=== PATIENT | female | born 1935 | race Caucasian/White ===

== ENCOUNTER 2016-09-05 23:27 | Emergency (ER) | payer MEDICARE ==
[~2016-09-05] VITALS: Ht 162.6 cm; Wt 100.0 kg
[~2016-09-05 23:27] MED LIST: ASPI81TA82 PO; ATOR80TA41 PO; CALC.25 PO; HCTZ25 PO; LOSA50 PO; OMEP20CA5 PO; POLY119S PO; TAZT240C2 PO; TOPR100T15 PO; TRAM50 PO; TUMS CHEW; WARF5 PO
[2016-09-05 23:30] VITALS: BP 183/74; PULSE 87; RESP 18; TEMP 98.7; O2SAT 98
[2016-09-05] MEDS ORDERED: METO100T PO (23:43)
[2016-09-05] MEDS ORDERED: ASPI81CH CHEW (23:43)
[2016-09-05] MEDS ORDERED: DILT300C3 PO (23:43)
[2016-09-05] MEDS ORDERED: TERA2CAP3 PO (23:43)
[2016-09-05] MEDS ORDERED: MIRA33504 PO (23:43)
[2016-09-05] MEDS ORDERED: WARF-23 PO (23:43)
[2016-09-05] MEDS ORDERED: LOSA100T PO (23:43)
[2016-09-05] MEDS ORDERED: ATOR1TAB18 PO (23:43)
[2016-09-05] MEDS ORDERED: CALC0.25 PO (23:43)
[2016-09-05] MEDS ORDERED: WARF-18 PO (23:43)
[2016-09-05 23:48] VITALS: RESP 18; O2SAT 98
[2016-09-06 00:18] LABS: ALKALINE PHOSPHATASE 84 U/L (45-117); ALT (GPT) 33 U/L (10-53); ANION GAP 7 MEQ/L (5-15); AST (GOT) 26 U/L (15-37); BICARBONATE 27.4 MEQ/L (21.0-32.0); BLOOD UREA NITROGEN 32 MG/DL (7-18); CHLORIDE 107 MEQ/L (98-107); GLOMERULAR FILTRATION RATE 30 ML/MIN (>89); POTASSIUM 4.9 MEQ/L (3.5-5.1); SODIUM (NA) 141 MEQ/L (136-145); TOTAL BILIRUBIN ADULT 0.7 MG/DL (0.2-1.0)
--- NOTE | 2016-09-06 00:18 | RADRPT ---
EXAM DATE/TIME: 09/06/2016 00:00 [facility] COMPARISON: CT BRAIN W/O CONTRAST, September 16, 2014, 17:51. INDICATIONS : Trauma, fell and hit back of head. RADIATION DOSE: 56.35 CTDIvol (mGy) MEDICAL HISTORY : Hypertension. Cardiovascular disease cardiac stents SURGICAL HISTORY : Hysterectomy. ENCOUNTER: Initial ACUITY: 1 day PAIN SCALE: 6/10 LOCATION: cranial TECHNIQUE: Multiple contiguous axial images were obtained of the head. Using automated exposure control and adj ustment of the mA and/or kV according to patient size, radiation dose was kept as low as reasonably a chievable to obtain optimal diagnostic quality images. FINDINGS: There is complete opacification of the bilateral maxillary sinuses, ethmoid air cells frontal sinuses and extension into the nasal cavity from the bilateral maxillary sinuses possibly related to mucosal disease or mucous retention cysts. There is patchy white matter disease in the periventricular regio ns. No hemorrhage, acute infarct, or mass. Mild atrophy. No fractures. CONCLUSION: Pansinus opacification as above. Atrophy and white matter disease. Adama Mayorga MD on September 06, 2016 at 0:16 Board Certified Radiologist. This report was verified electronically.
[2016-09-06 00:20] LABS: APTT (PATIENT) 27.9 SEC (24.3-30.1); INTERNATIONAL NORMALIZED RATIO 1.4 RATIO
--- NOTE | 2016-09-06 00:28 | PD ---
HPI Chief Complaint: Fall Time Seen by Provider: 23:38 Travel History International Travel<30 days: No Contact w/Intl Traveler<30days: No Traveled to known affect area: No History of Present Illness HPI The patient is a 81 year old female who presents to the [facility] emergency department with a history of slipping and falling prior to arrival. She landed on her back on the tile. The patient reports that she has a headache. She denies having any other new pain. According to her who is at the bedside, she has had increasing difficulty with an unsteady gait. He reports that initially they thought this was related to the patient's chronic back pain which she receives injections for and is also of under the care of pain management for. However, over the last 4-5 days her back pain has been worse. The patient has a history of atrial fibrillation and is anticoagulated on Coumadin. He reports that she has had problems with intermittent falling due to her unsteady gait several times over the last few weeks. The patient denies having any extremity pain. She denies having any numbness or tingling or weakness to her extremities. She denies having any chest pain or shortness of breath. She denies having any abdominal pain. She denies having any neck pain. The patient was brought in by ambulance services and refused to have her cervical spine immobilized with a collar or to be placed on a backboard. The patient denies having a loss of consciousness. On review of systems, The patient denies any recent fevers, cough, congestion, vomiting, diarrhea, urinary symptoms, or neurologic symptoms. [facility] Past Medical History Narrative Medical The patient's past medical history is significant for atrial fibrillation, hyperlipidemia, coronary artery disease, hypertension, arthritis, chronic back pain Arthritis: Yes Asthma: No Atrial Fibrillation: Yes Autoimmune Disease: No Blood Disorders: No Anxiety: No Depression: No Heart Rhythm Problems: Yes (A FIB) Cancer: No Cardiac Catheterization: Yes Cardiovascular Problems: Yes (A FIB, STENTS X 3, HEART CATH) High Cholesterol: Yes Chemotherapy: No Chest Pain: Yes Congestive Heart Failure: No COPD: No Cerebrovascular Accident: No Coronary Artery Disease: Yes Diabetes: No Diminished Hearing: No Endocrine: No Gastrointestinal Disorders: Yes (HX OF CONSTIPATION) GERD: Yes Glaucoma: No Genitourinary: No Hepatitis: No Hiatal Hernia: No Hypertension: Yes Immune Disorder: No Kidney Stones: No Musculoskeletal: Yes Neurologic: No Psychiatric: No Reproductive: No Respiratory: No Immunizations Current: Yes Migraines: No Myocardial Infarction: No Radiation Therapy: No Renal Failure: No Seizures: No Sickle Cell Disease: No Sleep Apnea: No Thyroid Disease: Yes Ulcer: No Tetanus Vaccination: < 5 Years PNEUMOCCOCAL Vaccine (Year): 1 Menopausal: Yes Past Surgical History Narrative Surgical The patient's past surgical history is significant for cardiac catheterization with stent placement 3, parathyroidectomy, partial thyroidectomy, right knee replacement, hysterectomy, cholecystectomy. 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 Morphine (Verified Adverse Reaction, Intermediate, N/V, 09/05/16) Reported Meds & Prescriptions Reported Meds & Active Scripts Active Reported Diltiazem CD 24 HR 300 Mg Caper 300 Mg PO DAILY Metoprolol Tartrate 100 Mg Tab 100 Mg PO BID Losartan (Losartan Potassium) 100 Mg Tab 100 Mg PO DAILY Calcitriol 0.25 Mcg Cap 0.25 Mcg PO TID Warfarin 2.5 Mg Tab 2.5 Mg PO DAILY Warfarin 5 Mg Tab 5 Mg PO DAILY Atorvastatin (Atorvastatin Calcium) 80 Mg Tab 80 Mg PO HS Terazosin (Terazosin HCl) 2 Mg Cap 2 Mg PO HS Miralax Powder (Polyethylene Glycol 3350 Powder) 17 Gm Powd 17 Gm PO DAILY Mix and dissolve one measuring cap-ful (17 grams) in water or juice. Aspirin 81 Mg Chew 81 Mg CHEW ONCE Review of Systems Except as stated in HPI: all other systems reviewed are Neg General / Constitutional: No: Fever Eyes: No: Visual changes HENT: Positive: Headaches, No: Neck Pain Cardiovascular: No: Chest Pain or Discomfort Respiratory: No: Shortness of Breath Gastrointestinal: No: Abdominal Pain Genitourinary: No: Dysuria Musculoskeletal: No: Pain Skin: No Rash Neurologic: Positive: Headache, No: Weakness, Focal Abnormalities, Change in Mentation, Slurred Speech, Sensory Disturbance Psychiatric: No: Depression Endocrine: No: Polydipsia Hematologic/Lymphatic: No: Easy Bruising Physical Exam Narrative General: The patient is a well-developed well-nourished female in no acute distress, pressure bandage is in place around her head. Head and Neck exam: Head is normocephalic, pressure bandage is in place around her head with a reported laceration on the occipital scalp. Examination of this has been deferred until after CT scan. The patient's bandage was removed and the patient was noted to have a 1 cm laceration to the left occipital scalp without any active bleeding. No underlying crepitus or step-off. She does have some soft tissue swelling surrounding this. Eyes: EOMI, pupils are equal round and reactive to light. Nose: Midline septum with pink mucous membranes Mouth: Dentition unremarkable. Moist mucus membranes. Posterior oropharynx is not erythematous. No tonsillar hypertrophy. Uvula midline. Airway patent. Neck: No palpable lymphadenopathy. No nuchal rigidity. No thyromegaly. No spinous process tenderness to palpation, no step-off or crepitus, no erythema or ecchymosis. Cardiovascular: Regular rate and rhythm without murmurs, gallops, or rubs. No pulse deficit to the extremities. Lungs: Clear to auscultation bilaterally. No wheezes, rhonchi, or rales. Abdomen: Soft, without tenderness to palpation in all 4 quadrants of the abdomen. No guarding, rebound, or rigidity. Normal bowel sounds are audible. No tenderness on palpation of McBurney's point. Negative Shanks's sign. Extremities: No clubbing or cyanosis. The patient has 1+ pitting edema bilateral lower extremities. 2+ pulses in all 4 extremities. On examination of the patient's extremities, the patient has full range of motion without any deformity, crepitus, or pain. She has no pelvic instability on pelvic rock. Back: No spinous process tenderness to palpation. No costovertebral angle tenderness to palpation. The patient has no step-off or crepitus on palpation of her spinous processes. No erythema or ecchymosis. Neurologic Exam: Cranial nerves 2-12 were intact on exam. Strength is 5/5 in all 4 extremities. No sensory deficits noted. Data Data Last Documented VS Vital Signs Date Time Temp Pulse Resp B/P Pulse Ox O2 Delivery O2 Flow Rate FiO2 09/06/16 02:29 66 16 186/86 97 Room Air 09/05/16 23:[address] Brain W/O Iv Contrast(Rout) (09/05/16 23:43) Ct Cerv Spine W/O Contrast (09/05/16 23:43) Electrocardiogram (09/05/16 23:44) Complete Blood Count With Diff (09/05/16 23:44) Comprehensive Metabolic Panel (09/05/16 23:44) Prothrombin Time / Inr (Pt) (09/05/16 23:44) Act Partial Throm Time (Ptt) (09/05/16 23:44) Urinalysis - C+S If Indicated (09/05/16 23:44) Chest, Single Ap (09/05/16 23:44) Iv Access Insert/Monitor (09/05/16 23:44) Ecg Monitoring (09/05/16 23:44) Oximetry (09/05/16 23:44) Cefazolin 2 Gm Premix (Ancef 2 Gm Premix (09/06/16 01:15) Sodium Chlor 0.9% 250 Ml Inj (Ns 250 Ml (09/06/16 01:15) Lidocai-Epi 1%-1:100,000 Inj (Xylocaine- (09/06/16 02:00) Cath For Specimen (09/06/16 02:16) Urine Culture (09/06/16 02:20) Labs Laboratory Tests Test 09/05/16 09/06/16 09/06/16 23:50 00:30 02:20 Prothrombin Time 16.0 SEC Prothromb Time International 1.4 RATIO Ratio Activated Partial 27.9 SEC Thromboplast Time Sodium Level 141 MEQ/L Potassium Level 4.9 MEQ/L Chloride Level 107 MEQ/L Carbon Dioxide Level 27.4 MEQ/L Anion Gap 7 MEQ/L Blood Urea Nitrogen 32 MG/DL Creatinine 1.63 MG/DL Estimat Glomerular Filtration 30 ML/MIN Rate Random Glucose 91 MG/DL Calcium Level 9.5 MG/DL Total Bilirubin 0.7 MG/DL Aspartate Amino Transf 26 U/L (AST/SGOT) Alanine Aminotransferase 33 U/L (ALT/SGPT) Alkaline Phosphatase 84 U/L Total Protein 6.7 GM/DL Albumin 2.5 GM/DL White Blood Count 5.1 TH/MM3 Red Blood Count 3.69 MIL/MM3 Hemoglobin 10.7 GM/DL Hematocrit 33.3 % Mean Corpuscular Volume 90.1 FL Mean Corpuscular Hemoglobin 29.0 PG Mean Corpuscular Hemoglobin 32.2 % Concent Red Cell Distribution Width 16.7 % Platelet Count 149 TH/MM3 Mean Platelet Volume 8.2 FL Neutrophils (%) (Auto) % CBC Comment AUTO DIFF Differential Total Cells 100 Counted Neutrophils % (Manual) 59 % Band Neutrophils % 8 % Lymphocytes % 10 % Monocytes % 9 % Eosinophils % 5 % Neutrophils # (Manual) 3.5 TH/MM3 Myelocytes 1 % Nucleated Red Blood Cells 1 /100 WBC Differential Comment FINAL DIFF MANUAL Atypical Lymphocytes 8 % Platelet Estimate NORMAL Platelet Morphology Comment NORMAL Ovalocytes 1+ Acanthocytes 1+ Hematology Comments Urine Color YELLOW Urine Turbidity HAZY Urine pH 5.5 Urine Specific [place] 1.013 Urine Protein 30 mg/dL Urine Glucose (UA) NEG mg/dL Urine Ketones NEG mg/dL Urine Occult Blood NEG Urine Nitrite POS Urine Bilirubin NEG Urine Urobilinogen LESS THAN 2.0 MG/DL Urine Leukocyte Esterase MOD Urine RBC 1 /hpf Urine WBC 16 /hpf Urine Squamous Epithelial 3 /hpf Cells Urine Amorphous Sediment RARE Urine Bacteria MOD /hpf Urine Hyaline Casts 1 /lpf Urine Mucus FEW /lpf Microscopic Urinalysis Comment CATH-CULTURE IND [facility] Medical Decision Making Medical Screen Exam Complete: Yes Emergency Medical Condition: Yes Medical Record Reviewed: Yes Interpretation(s) Last Impressions Chest X-Ray 09/05/[id number] Signed Impressions: Service Date/Time: Tuesday, September 06, 2016 00:06 - CONCLUSION: No acute disease. Adama Mayorga MD Head CT [id number] Signed Impressions: Service Date/Time: Tuesday, September 06, 2016 00:00 - CONCLUSION: Pansinus opacification as above. Atrophy and white matter disease. Adama Mayorga MD Cervical Spine CT [id number] Signed Impressions: Service Date/Time: Tuesday, September 06, 2016 00:02 - CONCLUSION: Degenerative changes are noted as above without evidence for acute fracture. Adama Mayorga MD Differential Diagnosis Intracranial hemorrhage, versus concussion, versus cervical spine trauma, versus intrathoracic trauma, versus pelvic injury Narrative Course During the course of the patients emergency department visit, the patients history, examination, and differential diagnosis were reviewed with the patient. The patient had IV access obtained and blood work sent for analysis. The patient was placed on a clinical research monitor with oximetry and blood pressure monitoring. An EKG was done on arrival. The patient's EKG shows evidence of atrial fibrillation with a heart rate of 89, no acute ST segment elevation is noted. Q waves are noted in lead 3, occasional PVCs are noted. The patient was provided Ancef 2 g IV, normal saline at 250 mm IV fluid bolus times one. The patients laboratory studies were reviewed and remarkable for a white count of 5.1, hemoglobin 10.7, platelets 149 with an abnormal differential to include 59 neutrophils, 8 bands, 10 lymphocytes, monocytes 9, eosinophils 5. On further questioning of the patient the patient's family they report that she does have a blood disorder which they are having monitored, CMP is remarkable for a BUN of 32, creatinine 1.63, albumin 2.5. The patient has a history of renal insufficiency and this is similar to previously. INR is 1.4, PTT 27.9, PT 16, urinalysis shows positive nitrite, moderate leukocyte esterase, 16 WBCs, moderate bacteria. Culture was indicated. This was a catheterized specimen. Radiology studies were reviewed and remarkable for a CT scan of the brain that shows pansinusitis, otherwise no acute abnormality, chest x-ray shows no acute abnormality, CT scan of the brain shows degenerative changes, no other acute abnormality. The patient was able to stand up and ambulate and is at her baseline. The patient will be discharged home with a prescription for Keflex to be completed over the next 10 days. This antibiotic should cover well for sinusitis as well as her urinary tract infection. The patient is resting comfortably and feels better, is alert and in no distress. The patients results and examination findings were discussed with the patient's and the patient. The repeat examination is unremarkable and benign. The history, exam, diagnostic testing, and current condition do not suggest any significant pathology to warrant further testing, continued ED treatment, admission, or surgical evaluation at this point. The vital signs have been stable. The patient does not have uncontrollable pain, intractable vomiting, or other significant symptoms. The patient's condition is stable and appropriate for discharge. The patient will pursue further outpatient evaluation with a primary care physician or other designated or consulting physician as indicated in the discharge instructions. The patient expressed understanding and was agreeable with this plan. Procedures Procedure Narrative LACERATION LOCATION: Left occipital scalp LENGTH: 1 cm NUMBER OF STITCHES/PHILIP: 2 philip REPAIR: The area of the laceration was prepped with Betadine and sterilely draped. The laceration was infiltrated with 1% lidocaine. The wound was copiously irrigated and explored without evidence of foreign body, tendon injury or neurovascular injury. The wound was closed using philip. This was a single layer repair. A sterile dressing was applied. The patient was advised to keep the dressing clean and dry. Patient tolerated the procedure well. Diagnosis Primary Impression: Fall Qualified Code: W19.XXXA - Fall, initial encounter Additional Impressions: Scalp laceration Qualified Code: S01.01XA - Scalp laceration, initial encounter Chronic anticoagulation Urinary tract infection Qualified Code: N30.00 - Acute cystitis without hematuria Sinusitis Qualified Code: J32.4 - Pansinusitis, unspecified chronicity Referrals: Primary Care Physician 2 days Patient Instructions: General Instructions, Head Injury (ED), Scalp Contusion in Adults (ED), Sinusitis (ED), Staple Care (ED), Urinary Tract Infection in Women (ED) Additional Instructions: Please have your philip removed in 7 days. Med/Other Pt SpecificInfo: Prescription(s) given Scripts Cephalexin (Keflex)500 Mg Non386 Mg PO Q8H #30 CAP Ref 0 Prov:Mallorie Ramirez MD 09/06/16 Condition: Stable Mallorie Ramirez MD Sep 06, 2016 00:28
--- NOTE | 2016-09-06 00:29 | RADRPT ---
EXAM DATE/TIME: 09/06/2016 00:06 [facility] COMPARISON: CHEST SINGLE AP, July 31, 2013, 19:24. INDICATIONS : Shortness of breath. MEDICAL HISTORY : Hypertension. Cardiovascular disease. SURGICAL HISTORY : Hysterectomy. Coronary artery stent. ENCOUNTER: Initial ACUITY: 1 day PAIN SCORE: 0/10 LOCATION: Bilateral chest FINDINGS: Cardiomegaly. Aortic calcification. Clear lungs. Degenerative changes of the spine. CONCLUSION: No acute disease. Adama Mayorga MD on September 06, 2016 at 0:28 Board Certified Radiologist. This report was verified electronically.
--- NOTE | 2016-09-06 00:32 | RADRPT ---
EXAM DATE/TIME: 09/06/2016 00:02 [facility] COMPARISON: No previous studies available for comparison. INDICATIONS : Trauma, fell and hit back of head. RADIATION DOSE: 36.08 CTDIvol (mGy) MEDICAL HISTORY : Hypertension. Cardiovascular disease cardiac stents SURGICAL HISTORY : Hysterectomy. ENCOUNTER: Initial ACUITY: 1 day PAIN SCALE: 6/10 LOCATION: neck TECHNIQUE: Volumetric scanning of the cervical spine was performed. Multiplanar reconstructions in the sagittal, coronal and oblique axial planes were performed. Using automated exposure control and adjustment o f the mA and/or kV according to patient size, radiation dose was kept as low as reasonably achievable to obtain optimal diagnostic quality images. FINDINGS: There is moderate disc space narrowing at C4-5 and C7-T1 with multilevel osteophyte formation. The od ontoid process is intact. There is no prevertebral soft tissue swelling. Normal alignment. Multilevel uncovertebral hypertrophy at C4-5 through C6-7 identified. No compression deformities. There is mild canal stenosis at C3-4 secondary to a diffuse disc osteophyte complex. There is mild canal narrowing at C4-5 with severe bilateral foraminal stenosis right greater than left secondary to uncovertebral hypertrophy. CONCLUSION: Degenerative changes are noted as above without evidence for acute fracture. Adama Mayorga MD on September 06, 2016 at 0:29 Board Certified Radiologist. This report was verified electronically.
[2016-09-06] MEDS ORDERED: SODIUM CHLOR 0.9% 250 ML INJ 250 ML IV ONE (01:15)
[2016-09-06] MEDS ORDERED: ceFAZolin 2 GM PREMIX 50 ML IV ONE (01:15)
[2016-09-06] MEDS ORDERED: LIDOCAINE 1%/EPINEPHrine 1:100,000 SOLN 20 ML VIAL INFIL ONE (02:00)
[2016-09-06 02:29] VITALS: BP 186/86; PULSE 66; RESP 16; O2SAT 97
[2016-09-06 02:41] LABS: HEMATOCRIT 33.3 % (35.0-46.0); RED BLOOD COUNT 3.69 MIL/MM3 (4.00-5.30); WHITE BLOOD COUNT 5.1 TH/MM3 (4.0-11.0)
[2016-09-06 02:42] LABS: HEMO FLAGS AUTO DIFF; MEAN CELL VOLUME 90.1 FL (80.0-100.0); MEAN CORPUSCULAR HGB CONC 32.2 % (32.0-36.0); PLATELET COUNT 149 TH/MM3 (150-450); RED CELL DISTRIBUTION WIDTH 16.7 % (11.6-17.2)
[2016-09-06 02:46] LABS: BACTERIA, URINE MOD /hpf; BLOOD, URINE NEG (NEG); GLUCOSE,URINE NEG (NEG); HYALINE CAST, URINE 1 /lpf (RARE); KETONE, URINE NEG (NEG); MUCUS URINE FEW /lpf (OCC); NITRITE,URINE POS (NEG); PH, URINE 5.5 (5.0-8.5); SQUAMOUS EPITHELIAL CELL URINE 3 /hpf (0-5); URINE COLOR YELLOW (YELLW/STRAW)
[2016-09-06 02:47] LABS: ATYPICAL LYMPHOCYTES 8 % (0-0); BANDS 8 % (0-6); CORRECTED NUCLEATED RBC 1 /100 WBC (0-0); EOSINOPHILS 5 % (0-4); MYELOCYTES 1 % (0-0); NEUTROPHIL # MANUAL DIFF 3.5 TH/MM3 (1.8-7.7); POLYS (SEG NEUTROPHILS) 59 % (16-70); SCAN/DIFF FINAL DIFF MANUAL; WBC DIFF SAMPLE 100
[2016-09-06 02:47] LABS: COMMENT (UR) CATH-CULTURE IND; CULTURE IF INDICATED CATH CULTURE IND
[2016-09-06 02:48] LABS: ACANTHOCYTES 1+ (NORMAL); OVALOCYTES 1+ (NORMAL); PLATELET ESTIMATE SMEAR NORMAL (NORMAL); PLATELET MORPHOLOGY NORMAL (NORMAL)
[2016-09-06] MEDS ORDERED: CEPH-460 PO (03:26)
[2016-09-06 03:39] VITALS: BP 186/78; TEMP 98.5
--- NOTE | 2016-09-06 14:32 | EKG ---
Date Performed: 09/05/2016 Time Performed: 23:40:37 PTAGE: 81 years EKG: ATRIAL FIBRILLATION LOW QRS VOLTAGE IN PRECORDIAL LEADS POSSIBLE ANTERIOR MYOCARDIAL INFARC TION ABNORMAL ECG PREVIOUS TRACING : 08/01/2013 08.57 Compared to the previous tracing, Atrial fibrillation is ne w DOCTOR: Larry Steward Interpretating Date/Time 09/06/2016 14:30:11
== END 2016-09-06 03:42 | disposition home or self-care (01) ==
LOC: NEPE 23:27
DX: S01.01XA Laceration without foreign body of scalp, initial encounter (principal); J32.4 Chronic pansinusitis; N30.00 Acute cystitis without hematuria; B96.20 Unspecified Escherichia coli [E. coli] as the cause of diseases classified elsewhere; I48.91 Unspecified atrial fibrillation; W01.0XXA Fall on same level from slipping, tripping and stumbling without subsequent striking against object, initial encounter; Y93.9 Activity, unspecified; Y92.9 Unspecified place or not applicable
CPT/HCPCS: 12001; 70450; 71010; 72125; 80053; 81001; 85007; 85027; 85610; 85730; 87077; 87086; 87186; 93005; 96365; 99285; J0690; J7050; P9612

== ENCOUNTER 2017-01-13 00:18 | Inpatient (IN) | payer MEDICARE ==
[~2017-01-13] VITALS: Ht 162.6 cm; Wt 75.7 kg
[2017-01-13] VITALS (17 sets, daily range): BP systolic 117–175; BP diastolic 58–71; PULSE 63–92; RESP 14–25; TEMP 97.8–99.9; O2SAT 96–100
[~2017-01-13 00:18] MED LIST changes: +ASPI81CH CHEW; -ASPI81TA82 PO; +ATOR1TAB18 PO; -ATOR80TA41 PO; -CALC.25 PO; +CALC0.25 PO; +CEPH-460 PO; +DILT300C3 PO; -HCTZ25 PO; +LOSA100T PO; -LOSA50 PO; +METO100T PO; +MIRA33504 PO; -OMEP20CA5 PO; -POLY119S PO; -TAZT240C2 PO; +TERA2CAP3 PO; -TOPR100T15 PO; -TRAM50 PO; -TUMS CHEW; +WARF-18 PO; +WARF-23 PO; -WARF5 PO
[2017-01-13 00:30] LABS: MEAN CORPUSCULAR HGB CONC 37.2 % (32.0-36.0)
[2017-01-13] MEDS ORDERED: FUROSEMIDE 40 MG/4 ML VIAL IVP ONE (00:30)
[2017-01-13] MEDS ORDERED: SODIUM CHLORIDE 0.9% FLUSH 10 ML FLUSH IVF PRN ×2 (00:30→03:45)
--- NOTE | 2017-01-13 00:35 | PD ---
HPI Chief Complaint: Edema Time Seen by Provider: 00:22 Travel History International Travel<30 days: No Contact w/Intl Traveler<30days: No Traveled to known affect area: No History of Present Illness HPI The patient is a 81-year-old female who presents emergency department via EMS for 3 weeks of increasing lower extremity edema. The patient states she 's had edema to lower extremities for last 3 weeks. The patient states she did see her physician in the office, however, cannot recall what recommendations were made. According to EMS the patient was supposed to be taking a diuretic, however, is not being taken a diuretic as directed. The patient is a somewhat limited historian, but is at baseline according to EMS. The patient states she lives at home with her . She does complain of lower extremity edema that is painful occasionally weeping. She now complains of mild erythema to left lower extremity. She denies any chest pain or shortness of breath. The patient is a somewhat limited historian. PFSH Past Medical History Arthritis: Yes Asthma: No Atrial Fibrillation: Yes Autoimmune Disease: No Blood Disorders: No Anxiety: No Depression: No Heart Rhythm Problems: Yes (A FIB) Cancer: No Cardiac Catheterization: Yes Cardiovascular Problems: Yes (A FIB, STENTS X 3, HEART CATH) High Cholesterol: Yes Chemotherapy: No Chest Pain: Yes Congestive Heart Failure: No COPD: No Cerebrovascular Accident: No Coronary Artery Disease: Yes Diabetes: No Diminished Hearing: No Endocrine: No Gastrointestinal Disorders: Yes (HX OF CONSTIPATION) GERD: Yes Glaucoma: No Genitourinary: No Hepatitis: No Hiatal Hernia: No Hypertension: Yes Immune Disorder: No Kidney Stones: No Musculoskeletal: Yes Neurologic: No Psychiatric: No Reproductive: No Respiratory: No Immunizations Current: Yes Migraines: No Myocardial Infarction: No Radiation Therapy: No Renal Failure: No Seizures: No Sickle Cell Disease: No Sleep Apnea: No Thyroid Disease: Yes Ulcer: No PNEUMOCCOCAL Vaccine (Year): 1 Menopausal: Yes Past Surgical History Abdominal Surgery: No AICD: No Arteriovenous Shunt: No Cardiac Surgery: Yes (STENTS 3) Cholecystectomy: Yes Coronary Artery Bypass Graft: No Coronary Stent: Yes (X3) Ear Surgery: No Endocrine Surgery: Yes (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 Diltiazem CD 24 HR 300 Mg Caper 300 Mg PO DAILY Metoprolol Tartrate 100 Mg Tab 100 Mg PO BID Losartan (Losartan Potassium) 100 Mg Tab 100 Mg PO DAILY Calcitriol 0.25 Mcg Cap 0.25 Mcg PO TID Warfarin 2.5 Mg Tab 2.5 Mg PO DAILY Warfarin 5 Mg Tab 5 Mg PO DAILY Atorvastatin (Atorvastatin Calcium) 80 Mg Tab 80 Mg PO HS Terazosin (Terazosin HCl) 2 Mg Cap 2 Mg PO HS Aspirin 81 Mg Chew 81 Mg CHEW ONCE Review of Systems ROS Limitations: Poor Historian Except as stated in HPI: all other systems reviewed are Neg General / Constitutional: No: Fever Cardiovascular: No: Chest Pain or Discomfort Respiratory: No: Shortness of Breath Gastrointestinal: No: Nausea, Vomiting, Abdominal Pain Musculoskeletal: Positive: Edema, Pain Physical Exam Narrative GENERAL: Awake but somewhat lethargic 81 year-old female who appears her stated age and is in mild respiratory distress with a respiratory rate of 28. SKIN: Focused skin assessment warm/dry. HEAD: Atraumatic. Normocephalic. EYES: Mild drainage from the left eye. ENT: No nasal bleeding or discharge. Mucous membranes pink and moist. NECK: Trachea midline. No JVD. CARDIOVASCULAR: Irregularly irregular with a heart rate in the 70s. RESPIRATORY: Tachypnea with a respiratory rate of 28. Crackles in the bases bilateral. GASTROINTESTINAL: Abdomen soft, obese, nontender without rebound tenderness. MUSCULOSKELETAL: Lower extremity pain and edema from the inferior thigh bilaterally to the toes. Mild erythema over the medial and anterior left lower extremity. NEUROLOGICAL: Awake but lethargic. No obvious deficits. Oriented to person, place, and year. PSYCHIATRIC: Flat affect. Data Data Last Documented VS Vital Signs Date Time Temp Pulse Resp B/P Pulse Ox O2 Delivery O2 Flow Rate FiO2 01/13/17 00:38 25 98 Room Air 01/13/17 00:34 69 01/13/17 00:30 99.9 137/60 Orders Complete Blood Count With Diff (01/13/17:) Comprehensive Metabolic Panel (01/13/17:) B-Type Natriuretic Peptide (01/13/17:) Act Partial Throm Time (Ptt) (01/13/17:) Prothrombin Time / Inr (Pt) (01/13/17:) Magnesium (Mg) (01/13/17:) Ckmb (Isoenzyme) Profile (01/13/17:) Troponin I (01/13/17:) Iv Access Insert/Monitor (01/13/17:) Electrocardiogram (01/13/17:) Ecg Monitoring (01/13/17) Oximetry (01/13/17:) Oxygen Administration (01/13/17:) Chest, Single Ap (01/13/17:28) Sodium Chloride 0.9% Flush (Ns Flush) (01/13/17 00:30) Furosemide Inj (Lasix Inj) (01/13/17 00:30) Lactic Acid (01/13/17 00:44) Wound Care (01/13/17 01:51) Admit Order (Ed Use Only) (01/13/17 02:31) Labs Laboratory Tests Test 01/13/17 00:45 Prothrombin Time 61.6 SEC Prothromb Time International 5.2 RATIO Ratio Activated Partial 38.5 SEC Thromboplast Time Sodium Level 142 MEQ/L Potassium Level 4.6 MEQ/L Chloride Level 107 MEQ/L Carbon Dioxide Level 27.8 MEQ/L Anion Gap 7 MEQ/L Blood Urea Nitrogen 34 MG/DL Creatinine 1.19 MG/DL Estimat Glomerular Filtration 44 ML/MIN Rate Random Glucose 93 MG/DL Lactic Acid Level 1.3 mmol/L Calcium Level 8.8 MG/DL Magnesium Level 1.8 MG/DL Total Bilirubin 0.8 MG/DL Aspartate Amino Transf 24 U/L (AST/SGOT) Alanine Aminotransferase 36 U/L (ALT/SGPT) Alkaline Phosphatase 73 U/L Total Creatine Kinase 45 U/L Troponin I LESS THAN 0.02 NG/ML B-Type Natriuretic Peptide 479 PG/ML Total Protein 6.2 GM/DL Albumin 2.8 GM/DL [facility] Medical Decision Making Medical Screen Exam Complete: Yes Emergency Medical Condition: Yes Medical Record Reviewed: Yes Interpretation(s) EKG reveals atrial fibrillation with a rate of 79. Nonspecific T wave changes. Q wave noted in lead 3. Last Impressions Chest X-Ray 01/13/17 0028 Signed Impressions: Service Date/Time: December 00:47 - CONCLUSION: No acute cardiopulmonary abnormality is identified. Jai Kelley MD Laboratory Tests Test 01/13/17 00:45 Prothrombin Time 61.6 SEC Prothromb Time International 5.2 RATIO Ratio Activated Partial 38.5 SEC Thromboplast Time Sodium Level 142 MEQ/L Potassium Level 4.6 MEQ/L Chloride Level 107 MEQ/L Carbon Dioxide Level 27.8 MEQ/L Anion Gap 7 MEQ/L Blood Urea Nitrogen 34 MG/DL Creatinine 1.19 MG/DL Estimat Glomerular Filtration 44 ML/MIN Rate Random Glucose 93 MG/DL Lactic Acid Level 1.3 mmol/L Calcium Level 8.8 MG/DL Magnesium Level 1.8 MG/DL Total Bilirubin 0.8 MG/DL Aspartate Amino Transf 24 U/L (AST/SGOT) Alanine Aminotransferase 36 U/L (ALT/SGPT) Alkaline Phosphatase 73 U/L Total Creatine Kinase 45 U/L Troponin I LESS THAN 0.02 NG/ML B-Type Natriuretic Peptide 479 PG/ML Total Protein 6.2 GM/DL Albumin 2.8 GM/DL Differential Diagnosis Differential diagnosis includes congestive heart failure, cardiomyopathy, volume overload, hypoalbuminemia, dependent edema, venous insufficiency, pleural effusion, hyponatremia. Narrative Course IV was established, labs are drawn and sent, and the patient was placed on cardiac telemetry monitoring and continuous pulse oximetry monitoring. EKG was ordered and interpreted. Chest x-ray was obtained. The patient was administered Lasix 40 mg intravenously. Chest x-ray is unremarkable. The patient's INR is elevated at 5.2. The patient's BNP is greater than 400. The patient is afebrile rate controlled. Chest x-ray was unremarkable, however, patient does have crackles with mild tachypnea. I had a discussion with the at bedside regarding disposition of going home versus admission. The states that he has been speaking with Dr. Samaniego, the primary physician , over the last 6 months. The lower extremity edema has been progressively getting worse, the states that he got a chair to help lift her up and over to a wheelchair, however, he is unable to take care of his at home. After discussion with the patient's , he would prefer admission and correction placement if possible as this problem has been progressing and he is no longer able to take care of his . Therefore, I discussed the patient with the on-call [facility] physician, Dr. De, who agrees with admission. Physician Communication Physician Communication I discussed the patient with Dr. De who agrees with admission. Diagnosis Primary Impression: Congestive heart failure Qualified Code: I50.9 - Acute on chronic congestive heart failure, unspecified congestive heart failure type Additional Impressions: Dependent edema Coagulopathy Admitting Information Admitting Physician Requests: Admit Condition: Stable Isai Benito MD Jan 13, 2017 00:35
[2017-01-13] MEDS ORDERED: MIRA3350 PO (00:43)
[2017-01-13 01:33] LABS: ALKALINE PHOSPHATASE 73 U/L (45-117); ALT (GPT) 36 U/L (10-53); ANION GAP 7 MEQ/L (5-15); AST (GOT) 24 U/L (15-37); BICARBONATE 27.8 MEQ/L (21.0-32.0); BLOOD UREA NITROGEN 34 MG/DL (7-18); CHLORIDE 107 MEQ/L (98-107); CREATINE KINASE 45 U/L (26-192); GLOMERULAR FILTRATION RATE 44 ML/MIN (>89); MAGNESIUM 1.8 MG/DL (1.5-2.5); POTASSIUM 4.6 MEQ/L (3.5-5.1); SODIUM (NA) 142 MEQ/L (136-145); TOTAL BILIRUBIN ADULT 0.8 MG/DL (0.2-1.0)
--- NOTE | 2017-01-13 01:38 | RADRPT ---
EXAM DATE/TIME: 01/13/2017 00:47 [place] COMPARISON: CHEST SINGLE AP, September 06, 2016, 0:06. INDICATIONS : Shortness of breath. MEDICAL HISTORY : Hypertension. Cardiovascular disease. SURGICAL HISTORY : Hysterectomy. Coronary artery stent. ENCOUNTER: Initial ACUITY: 1 day PAIN SCORE: Non-responsive. LOCATION: Bilateral chest FINDINGS: Portable AP view of the chest demonstrates a normal-sized cardiac silhouette. No effusion, consolidat ion, or pneumothorax is visualized. The bones and soft tissues demonstrate no acute abnormality. EKG lines overlie the patient. CONCLUSION: No acute cardiopulmonary abnormality is identified. Jai Kelley MD on January 13, 2017 at 1:35 Board Certified Radiologist. This report was verified electronically.
[2017-01-13 02:10] LABS: APTT (PATIENT) 38.5 SEC (24.3-30.1); INTERNATIONAL NORMALIZED RATIO 5.2 RATIO; PROTHROMBIN TIME - PATIENT 61.6 SEC (9.8-11.6)
[2017-01-13] MEDS ORDERED: ACETAMINOPHEN 650 MG SUPP PR PRN (03:45)
[2017-01-13] MEDS ORDERED: ONDANSETRON HCL 4 MG/2 ML VIAL IV PRN (03:45)
[2017-01-13 05:12] LABS: AUTOMATED NEUTROPHIL # 10.4 TH/MM3 (1.8-7.7); BASOPHIL % 0.3 % (0.0-2.0); EOSINOPHIL % 0.3 % (0.0-4.0); HEMATOCRIT 32.9 % (35.0-46.0); LYMPH % 7.5 % (9.0-44.0); LYMPHOCYTE # 0.9 TH/MM3 (1.0-4.8); MEAN CELL VOLUME 97.5 FL (80.0-100.0); MEAN CORPUSCULAR HEMOGLOBIN 36.3 PG (27.0-34.0); MONO % 5.1 % (0.0-8.0); NEUT % 86.8 % (16.0-70.0); PLATELET COUNT 141 TH/MM3 (150-450); RED BLOOD COUNT 3.37 MIL/MM3 (4.00-5.30); RED CELL DISTRIBUTION WIDTH 17.3 % (11.6-17.2)
[2017-01-13 05:13] LABS: HEMO FLAGS AUTO DIFF
[2017-01-13 07:31] LABS: ACANTHOCYTES 2+ (NORMAL); OVALOCYTES 1+ (NORMAL); SCAN/DIFF AUTO DIFF CONFIRMED
[2017-01-13] MEDS ORDERED: PROP150T PO (08:38)
[2017-01-13] MEDS ORDERED: ASPIRIN 81 MG CHEW TAB CHEW SCH (08:45)
--- NOTE | 2017-01-13 09:25 | HHI.HP ---
HPI Service [facility] Hospitalists Primary Care Physician Robles Samaniego MD Admission Diagnosis congestive heart failure, bilateral lower extremity pitting edema Chief Complaint: LE pain and swelling Travel History International Travel<30 Days: No Contact w/Intl Traveler <30 Da: No Traveled to Known Affected Are: No History of Present Illness Mrs. Tenorio is a 81 y/o WF with atrial fibrillation, diastolic dysfunction, CKD, stage 3, Hx of anemia and Cold agglutinin disease, COPD, and essential tremor who was brought to the ED at [facility] on 01/13/17 via EMS for increasing lower extremity edema and pain in the LE. The patient is a rather poor historian. I spoke with the pts , Natan who states she's had issues with LE edema for the last 6 months or so. She was started on Lasix 20mg daily as an outpt but has not been taking it very often due to increased urination. Pts reports that the pt has been in decline for the last several months and becoming more difficult to take care of her at home. She is not very mobile. Her has been modifying the home to accommodate her limitations but she has been falling frequently. He states that the LE edema has been causing her to have more limitation as far as movement and over the last few weeks she has had increasing pain in the LE. More recently she has been having issues with palpitations and Propafenone 150mg TID was added to her regimen about 1 month ago by her Supervisor Grounds, Dr. Guzman. She seems to have more pain related to the LLE and there is noted erythema of the LLE. No reported fevers at home. Pt states that she always has chills. Her states that the patient has had increasing memory loss issues in addition to her physical decline. No reported chest pain. She states that she feels SOB but is unable to give any specific details related to this. No reported N/V, Diarrhea, Constipation, melena, BRBPR. 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 Essential tremor GERD HTN Hx of hyperparathyroidism s/p parathyroidectomy Hyperlipidemia PVD Obesity 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, was treated with Dapsone for 6 months, completed in December 2014) 2D echo (04/09/2013) - Mild concentric LV hypertrophy, EF 55-60% - Diastolic dysfunction - LA mildly dilated - Mild thickening of the aortic valve leaflets, aortic sclerosis without stenosis - Mild thickening of the mitral leaflets, mild mitral regurg - Mild tricuspid regurg - Estimated PA systolic pressure is mildly elevated, 48mmHg Past Surgical History Parathyroid surgery in [place] BM biopsy in 2015 Left knee arthroscopy Right knee arthroplasty Bunionectomy PTCA with stent placement x 3 in 1997 Lap Marisela Rhizotomy, left Shoulder arthroscopy, right Lumbar laminectomy Tonsillectomy TUNDE Reported Medications -Propafenone 150 Mg PO Q8HR -Miralax Powder 17 Gm Powd PO DAILY -Diltiazem CD 24 HR 300 Mg PO DAILY -Metoprolol Tartrate 100 Mg PO BID -Losartan 100 Mg PO DAILY -Calcitriol 0.25 Mcg PO TID -Warfarin 2.5mg Tue-Tue -Warfarin 5mg Hdx-Kar-Mbf-Tue-sat -Atorvastatin 80 Mg PO HS -Terazosin 2 Mg PO HS -Aspirin 81 Mg CHEW ONCE DAILY Allergies: Coded Allergies: *MDRO Multi-Drug Resistant Organism (Verified Allergy, Unknown, 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 Morphine (Verified Adverse Reaction, Intermediate, N/V, 01/13/17) Family History Mother with hx of Parkinson's Disease Social History No reported tobacco, alcohol or illicit drug use Pt lives locally with her , Natan, they have been over 60 years They have two son's, one lives locally and one lives in [place] Physical Exam Vital Signs Vital Signs Date Time Temp Pulse Resp B/P Pulse Ox O2 Delivery O2 Flow Rate FiO2 01/13/17 07:15 98.4 92 20 134/66 98 01/13/17 04:43 97.8 88 18 143/65 100 01/13/17 03:49 88 14 142/64 99 Nasal Cannula 2 01/13/17 03:48 Nasal Cannula 2.00 01/13/17 00:38 25 98 Room Air 01/13/17 00:34 69 25 98 Room Air 01/13/17 00:30 99.9 71 25 137/60 98 Physical Exam GENERAL: This is a well-nourished, well-developed patient, in no apparent distress. Poor historian HEENT: Atraumatic. Normocephalic. No temporal or scalp tenderness. No scleral icterus. Airway patent. NECK: Trachea midline, supple, nontender. CARDIO: Irregularly irregular RESP: CTA bilaterally. No wheezes, rales, or rhonchi. ABD: +BS, soft, non-tender, nondistended. EXT: Bilateral LE edema, LLE with some erythema of the skin and darkened skin areas around the left ankle, very tender to the touch. NEURO: Awake and alert. Motor and sensory grossly within normal limits. Normal speech. Laboratory Laboratory Tests Test 01/13/17 01/13/17 00:45 01:40 Prothrombin Time 61.6 Prothromb Time International 5.2 Ratio Activated Partial 38.5 Thromboplast Time Sodium Level 142 Potassium Level 4.6 Chloride Level 107 Carbon Dioxide Level 27.8 Anion Gap 7 Blood Urea Nitrogen 34 Creatinine 1.19 Estimat Glomerular Filtration 44 Rate Random Glucose 93 Lactic Acid Level 1.3 Calcium Level 8.8 Magnesium Level 1.8 Total Bilirubin 0.8 Aspartate Amino Transf 24 (AST/SGOT) Alanine Aminotransferase 36 (ALT/SGPT) Alkaline Phosphatase 73 Total Creatine Kinase 45 Troponin I LESS THAN 0.02 B-Type Natriuretic Peptide 479 Total Protein 6.2 Albumin 2.8 White Blood Count 12.0 Red Blood Count 3.37 Hemoglobin 12.2 Hematocrit 32.9 Mean Corpuscular Volume 97.5 Mean Corpuscular Hemoglobin 36.3 Mean Corpuscular Hemoglobin 37.2 Concent Red Cell Distribution Width 17.3 Platelet Count 141 Mean Platelet Volume 9.0 Neutrophils (%) (Auto) 86.8 Lymphocytes (%) (Auto) 7.5 Monocytes (%) (Auto) 5.1 Eosinophils (%) (Auto) 0.3 Basophils (%) (Auto) 0.3 Neutrophils # (Auto) 10.4 Lymphocytes # (Auto) 0.9 Monocytes # (Auto) 0.6 Eosinophils # (Auto) 0.0 Basophils # (Auto) 0.0 CBC Comment AUTO DIFF Differential Comment AUTO DIFF CONFIRMED Ovalocytes 1+ Acanthocytes 2+ Red Cell Morphology Comment Hematology Comments Result Diagram: 01/13/17 0140 01/13/17 0045 Imaging Last Impressions Chest X-Ray 01/13/17 0028 Signed Impressions: Service Date/Time: , January 13, 2017 00:47 - CONCLUSION: No acute cardiopulmonary abnormality is identified. Jai Kelley MD Septic Shock Reassessment Heart: Irregular Lungs: Clear Skin: Warm Assessment and Plan Problem List: (1) Leg edema Status: Chronic Plan: - Pt has been having issues with LE for at least the last 6 months, this has been worsening with increased pain and redness over the last 3 weeks. - Pt had been on diuretics intermittently but has not been taking them due to increased urination - Pt was given Lasix 40mg IV in the ED - Place Erickson cath for accurate I&Os - Weigh patient daily - Continue diuresis with IV Lasix and potassium - 2D echo, pt with hx of diastolic dysfunction - Monitor renal function closely during diuresis - Pt with slightly elevated WBC count but pt has been afebrile and LE is not obviously infected, consider adding antibiotics if LE erythema does not improve with diuresis - Telemetry - Resume Metoprolol, Cardizem, Propafenone. Hold on resuming Losartan for now unless BP elevates - PT evaluation - Pt is quite debilitated and will likely need SNF placement at the end of this hospitalization. I did speak with her for over 30 mins regarding her case and she may need dedicated intermodal truck driver care following a stay at rehab as she is becoming increasingly difficult for him to care for her at home. - Supportive care - No DVT prophylaxis at this time due to elevated INR (2) Congestive heart failure Status: Chronic Plan: - Pt with hx of diastolic CHF - See above. (3) Coagulopathy Status: Acute Plan: - Pt is on Coumadin chronically for A. fib - Hold Coumadin for now due to elevated INR 5.2 at admission - Repeat INR in AM (4) Declining functional status Status: Chronic Plan: - See above. - Consult CM (5) A-fib Status: Chronic Plan: - See above. - Cont. BB, CCB, Propafenone - Telemetry (6) HTN (hypertension) Status: Chronic Plan: - See above. (7) CKD (chronic kidney disease) stage 3, GFR 30-59 ml/min Status: Chronic Plan: - Labs are stable at admission - Monitor closely during diuresis (8) Hyperparathyroidism Status: Resolved Plan: - Pt had parathyroid surgery in [place] in 2015 - Cont. Calcium supplementation - Pt follows with Dr. Ryder (9) CAD (coronary artery disease) Status: Chronic Assessment and Plan Patient examined. Assessment and plan formulated with Rola Pringle PA-C. I agree with the above. chf exacerbation. general weakness and ftt. will need snf once diuresed. Physician Certification 2 Midnight Certification Type: Admission for Inpatient Services Order for Inpatient Services The services are ordered in accordance with Medicare regulations or non- Medicare payer requirements, as applicable. In the case of services not specified as inpatient-only, they are appropriately provided as inpatient services in accordance with the 2-midnight benchmark. Estimated LOS (days): 3 3 days is the estimated time the patient will need to remain in the hospital, assuming treatment plan goals are met and no additional complications. Post-Hospital Plan: SNF Problem Qualifiers (1) Congestive heart failure: Qualified Code: I50.9 - Acute on chronic congestive heart failure, unspecified congestive heart failure type (2) A-fib: Qualified Code: I48.2 - Chronic atrial fibrillation Rola Pringle Jan 13, 2017 09:25 Sam Cabrera MD Jan 13, 2017 16:12
[2017-01-13] MEDS: METOPROLOL TARTRATE 100 MG TAB PO SCH ×2 (10:09→22:34)
[2017-01-13] MEDS: CALCITRIOL 0.25 MCG CAP PO SCH ×3 (10:09→17:43)
[2017-01-13] MEDS: DILTIAZEM-CD 300 MG CAP ER PO SCH (10:09)
[2017-01-13] MEDS: SODIUM CHLORIDE 0.9% FLUSH 10 ML FLUSH IV FLUSH SCH ×2 (10:10→22:34)
[2017-01-13 10:56] LABS: BICARBONATE 30.9 MEQ/L (21.0-32.0); MAGNESIUM 1.8 MG/DL (1.5-2.5); POTASSIUM 4.3 MEQ/L (3.5-5.1)
--- NOTE | 2017-01-13 12:46 | EKG ---
Date Performed: 01/13/2017 Time Performed: 00:53:13 PTAGE: 81 years EKG: ATRIAL FIBRILLATION NONSPECIFIC T-WAVE ABNORMALITY ABNORMAL ECG PREVIOUS TRACING : 09/05/2016 23.40 DOCTOR: Tommie Avelar Interpretating Date/Time 01/13/2017 12:44:09
[2017-01-13 13:16] LABS: BACTERIA, URINE OCC /hpf; BLOOD, URINE MOD (NEG); GLUCOSE,URINE NEG (NEG); KETONE, URINE NEG (NEG); MUCUS URINE FEW /lpf (OCC); NITRITE,URINE NEG (NEG); PH, URINE 5.5 (5.0-8.5); SQUAMOUS EPITHELIAL CELL URINE 1 /hpf (0-5); TRANSITIONAL EPI CELLS, URINE <1 /hpf; URINE COLOR YELLOW (YELLW/STRAW)
[2017-01-13 13:21] LABS: COMMENT (UR) CATH-CULTURE IND; CULTURE IF INDICATED CATH CULTURE IND
[2017-01-13] MEDS: PROPAFENONE HCL 150 MG TAB PO SCH ×2 (13:25→22:35)
--- NOTE | 2017-01-13 16:54 | ECHRPT ---
Indication: Heart failure, unspecified CONCLUSIONS Normal left ventricular size. Wall thickness is normal. The left atrial size is mildly dilated. Mild mitral valve regurgitation. Mitral annular calcification is present. Mild thickening of the mitral valve leaflets. There is severe tricuspid regurgitation. There is estimated moderate pulmonary hypertension present (51 mmHg). Trivial pulmonary valve regurgitation. There is a small pericardial effusion present. No hemodynamically significant echocardiographic features were observed (no pre-tamponade physiology). BP: / HR: Rhythm: MEASUREMENTS (Male / Female) Normal Values Technical Quality: 2D ECHO LV Diastolic Diameter PLAX 3.3 cm 4.2 - 5.9 / 3.9 - 5.3 cm LV Systolic Diameter PLAX 2.4 cm IVS Diastolic Thickness 1.5 cm 0.6 - 1.0 / 0.6 - 0.9 cm LVPW Diastolic Thickness 1.0 cm 0.6 - 1.0 / 0.6 - 0.9 cm LV Relative Wall Thickness 0.8 RV Internal Dim ED PLAX 2.1 cm LA Systolic Diameter LX 4.0 cm 3.0 - 4.0 / 2.7 - 3.8 cm M-MODE Aortic Root Diameter MM 3.1 cm AV Cusp Separation MM 2.2 cm DOPPLER MV Peak Velocity 138.0 cm/s MV Peak Gradient 7.6 mmHg MV Mean Velocity 52.9 cm/s MV Mean Gradient 2.0 mmHg MV Area PHT 3.7 cm Mitral E Point Velocity 114.0 cm/s TR Peak Velocity 302.0 cm/s TR Peak Gradient 36.5 mmHg FINDINGS LEFT VENTRICLE Normal left ventricular size. Wall thickness is normal. The left ventricular systolic function is normal with an estimated ejection fraction in the range of 60-65%. RIGHT VENTRICLE Normal right ventricular size and systolic function. LEFT ATRIUM The left atrial size is mildly dilated. RIGHT ATRIUM The right atrial size is normal. ATRIAL SEPTUM Normal atrial septal thickness without atrial level shunting by limited color doppler interrogation. AORTA The aortic root and proximal ascending aorta are normal in size on limited imaging. MITRAL VALVE Mild mitral valve regurgitation. Mitral annular calcification is present. Mild thickening of the mitral valve leaflets. AORTIC VALVE Trileaflet aortic valve. No aortic valve stenosis or regurgitation. TRICUSPID VALVE There is severe tricuspid regurgitation. There is estimated moderate pulmonary hypertension present (51 mmHg). PULMONARY VALVE Trivial pulmonary valve regurgitation. VESSELS The inferior vena cava is normal in size. PERICARDIUM There is a small pericardial effusion present. No hemodynamically significant echocardiographic features were observed (no pre-tamponade physiology). Carlos Ramirez MD (Electronically Signed) Final Date:13 January 2017 16:53
[2017-01-13] MEDS: FUROSEMIDE 40 MG/4 ML VIAL IV PUSH SCH (17:43)
[2017-01-13] MEDS: ATORVASTATIN 80 MG TAB PO SCH (22:34)
[2017-01-14] VITALS (8 sets, daily range): BP systolic 92–125; BP diastolic 50–59; PULSE 59–85; RESP 14–20; TEMP 97.2–98.8; O2SAT 93–99
[2017-01-14] MEDS: PROPAFENONE HCL 150 MG TAB PO SCH ×3 (05:34→20:11)
[2017-01-14 07:06] LABS: BICARBONATE 26.3 MEQ/L (21.0-32.0); MAGNESIUM 1.9 MG/DL (1.5-2.5); POTASSIUM 4.5 MEQ/L (3.5-5.1)
[2017-01-14 08:00] LABS: AUTOMATED NEUTROPHIL # 12.8 TH/MM3 (1.8-7.7); BASOPHIL # 0.1 TH/MM3 (0-0.2); BASOPHIL % 0.5 % (0.0-2.0); EOSINOPHIL % 0.1 % (0.0-4.0); LYMPH % 7.8 % (9.0-44.0); LYMPHOCYTE # 1.1 TH/MM3 (1.0-4.8); MONO % 2.3 % (0.0-8.0); NEUT % 89.3 % (16.0-70.0); PLATELET COUNT 113 TH/MM3 (150-450); WHITE BLOOD COUNT 14.4 TH/MM3 (4.0-11.0)
[2017-01-14 08:13] LABS: PROTHROMBIN TIME - PATIENT 113.5 SEC (9.8-11.6)
[2017-01-14 08:15] LABS: INTERNATIONAL NORMALIZED RATIO 9.3 RATIO
[2017-01-14 08:45] LABS: HEMATOCRIT 28.6 % (35.0-46.0); MEAN CELL VOLUME 96.5 FL (80.0-100.0); MEAN CORPUSCULAR HEMOGLOBIN 31.8 PG (27.0-34.0); RED BLOOD COUNT 2.97 MIL/MM3 (4.00-5.30); RED CELL DISTRIBUTION WIDTH 18.3 % (11.6-17.2)
[2017-01-14 08:46] LABS: HEMO FLAGS AUTO DIFF
[2017-01-14 09:43] LABS: BANDS 6 % (0-6); NEUTROPHIL # MANUAL DIFF 13.1 TH/MM3 (1.8-7.7); POLYS (SEG NEUTROPHILS) 85 % (16-70); WBC DIFF SAMPLE 100
[2017-01-14 09:45] LABS: ACANTHOCYTES 1+ (NORMAL)
[2017-01-14 09:46] LABS: SPHEROCYTES 2+ (NORMAL)
[2017-01-14 09:47] LABS: CRENATED RBCS 3+ (NORMAL); PLATELET ESTIMATE SMEAR LOW (NORMAL); PLATELET MORPHOLOGY NORMAL (NORMAL); SCAN/DIFF FINAL DIFF MANUAL
[2017-01-14] MEDS: CALCITRIOL 0.25 MCG CAP PO SCH ×3 (09:57→17:25)
[2017-01-14] MEDS: FUROSEMIDE 40 MG/4 ML VIAL IV PUSH SCH (09:58)
[2017-01-14] MEDS: DILTIAZEM-CD 300 MG CAP ER PO SCH (09:58)
[2017-01-14] MEDS: METOPROLOL TARTRATE 100 MG TAB PO SCH ×2 (09:58→20:11)
[2017-01-14] MEDS: SODIUM CHLORIDE 0.9% FLUSH 10 ML FLUSH IV FLUSH SCH ×2 (09:58→20:11)
[2017-01-14] MEDS ORDERED: VANCOMYCIN INJ 1,000 MG in SODIUM CHLOR 0.9% 250 ML INJ 250 ML IV ONE (11:15)
[2017-01-14] MEDS ORDERED: Vancomycin Consult Pharmacy 1 EA OTHER SCH (11:15)
--- NOTE | 2017-01-14 11:18 | HHI.PR ---
Subjective Remarks painful to touch left lower leg. more alert and trying to eat Objective Vitals heart reg lung cta abd s/nt ext lower ext edema with left lower leg more tender and red. Vital Signs Date Time Temp Pulse Resp B/P Pulse Ox O2 Delivery O2 Flow Rate FiO2 01/14/17 08:00 98.8 85 16 125/58 96 01/14/17 04:00 98.2 68 20 115/59 99 01/14/17 00:08 59 01/14/17 00:00 96 Nasal Cannula 2.00 01/13/17 23:35 98.5 74 20 117/58 97 01/13/17 23:02 79 01/13/17 22:30 Nasal Cannula 2.00 01/13/17 20:02 77 01/13/17 20:00 98 Nasal Cannula 2.00 01/13/17 19:42 99.1 76 17 147/63 98 01/13/17 16:20 150/70 01/13/17 15:44 63 01/13/17 13:09 157/69 01/13/17 12:16 98.3 82 22 148/70 96 01/13/17 01/13/17 01/14/17 15:00 23:00 07:00 Intake Total 240 ml 128 ml Output Total 100 ml 425 ml Balance 140 ml -297 ml Intake Oral 240 ml 120 ml IV Total 8 ml Output Urine Total 100 ml 425 ml # Bowel Movements 0 Result Diagram: 01/14/17 0752 01/14/17 0546 Imaging Last Impressions Chest X-Ray 01/13/17 0028 Signed Impressions: Service Date/Time: December 00:47 - CONCLUSION: No acute cardiopulmonary abnormality is identified. Jai Kelley MD A/P Problem List: (1) Congestive heart failure Status: Acute Plan: Pt has been having issues with LE for at least the last 6 months, this has been worsening with increased pain and redness over the last 3 weeks. - Pt had been on diuretics intermittently but has not been taking them due to increased urination - Pt was given Lasix 40mg IV in the ED - [facility] cath for accurate I&Os - Weigh patient daily - Continue diuresis with IV Lasix and potassium - 2D echo, pt with hx of diastolic dysfunction - Monitor renal function closely during diuresis - Resume Metoprolol, Cardizem, Propafenone. Hold on resuming Losartan for now unless BP elevates - PT evaluation - Pt is quite debilitated and will likely need SNF placement at the end of this hospitalization. I did speak with her for over 30 mins regarding her case and she may need watermelon harvesting supervisor care following a stay at rehab as she is becoming increasingly difficult for him to care for her at home. - No DVT prophylaxis at this time due to elevated INR improved with iv diuresis but left lower ext still red/very tender and could be cellulitis. will add abx today and hold next dose lasix due to rising cr. hold coumadin. vit k due to coumadin toxicity ..inr over 9. recheck. no bleeding currently. (2) Coagulopathy Status: Acute Plan: see above (3) Declining functional status Status: Chronic Plan: - See above. - Consult CM (4) A-fib Status: Chronic Plan: - See above. - Cont. BB, CCB, Propafenone - Telemetry (5) HTN (hypertension) Status: Chronic Plan: - See above. (6) CKD (chronic kidney disease) stage 3, GFR 30-59 ml/min Status: Chronic Plan: - Labs are stable at admission - Monitor closely during diuresis (7) Hyperparathyroidism Status: Resolved Plan: - Pt had parathyroid surgery in [place] in 2014 - Cont. Calcium supplementation - Pt follows with Dr. Ryder (8) CAD (coronary artery disease) Status: Chronic Problem Qualifiers (1) Congestive heart failure: Qualified Code: I50.9 - Acute on chronic congestive heart failure, unspecified congestive heart failure type (2) A-fib: Qualified Code: I48.2 - Chronic atrial fibrillation Sam Cabrera MD Jan 14, 2017 11:18
[2017-01-14] MEDS ORDERED: PHYTONADIONE 10 MG/ML VIAL SQ ONE (11:30)
[2017-01-14] MEDS ORDERED: PHYTONADIONE 5 MG TAB PO ONE (11:30)
[2017-01-14] MEDS ORDERED: VANCOMYCIN INJ 1,000 MG in SODIUM CHLOR 0.9% 250 ML INJ 250 ML IV SCH (12:00)
[2017-01-14] MEDS ORDERED: VANCOMYCIN INJ 1,250 MG in SODIUM CHLOR 0.9% 250 ML INJ 250 ML IV SCH (13:00)
[2017-01-14] MEDS: POTASSIUM CHLORIDE 20 MEQ CONTROLLED RELEASE TAB PO SCH (17:25)
[2017-01-14] MEDS: ATORVASTATIN 80 MG TAB PO SCH (20:11)
[2017-01-14 21:15] LABS: INTERNATIONAL NORMALIZED RATIO 6.7 RATIO
[2017-01-15] VITALS (7 sets, daily range): BP systolic 109–114; BP diastolic 54–60; PULSE 55–88; RESP 15–20; TEMP 97.4–98.6; O2SAT 95–97
[2017-01-15] MEDS: ACETAMINOPHEN 325 MG TAB PO PRN ×2 (00:24→13:35)
[2017-01-15] MEDS: PROPAFENONE HCL 150 MG TAB PO SCH ×3 (05:31→21:05)
[2017-01-15] MEDS: DILTIAZEM-CD 300 MG CAP ER PO SCH (08:59)
[2017-01-15] MEDS: CALCITRIOL 0.25 MCG CAP PO SCH ×3 (08:59→17:23)
[2017-01-15] MEDS: METOPROLOL TARTRATE 100 MG TAB PO SCH ×2 (08:59→21:05)
[2017-01-15] MEDS: SODIUM CHLORIDE 0.9% FLUSH 10 ML FLUSH IV FLUSH SCH ×2 (08:59→21:05)
--- NOTE | 2017-01-15 10:04 | HHI.PR ---
Subjective Remarks left leg seems less painful trying to eat. Objective Vitals weak appearing oriented heart reg lung cta abd s/nt ext lower ext edema ...left lower ext erythema/tenderness but a little better. wraps. Vital Signs Date Time Temp Pulse Resp B/P Pulse Ox O2 Delivery O2 Flow Rate FiO2 01/15/17 08:00 97.5 71 20 109/55 95 01/15/17 04:00 98.6 79 15 109/60 96 01/15/17 04:00 Nasal Cannula 2.00 01/15/17 02:26 20 01/15/17 00:00 Nasal Cannula 2.00 01/15/17 00:00 97.4 75 17 114/54 97 01/14/17 20:15 Nasal Cannula 2.00 01/14/17 20:00 98.5 67 16 108/53 99 01/14/17 20:00 63 01/14/17 17:15 93 Nasal Cannula 2.00 01/14/17 16:00 97.2 63 14 92/50 96 01/14/17 14:03 93 Nasal Cannula 2.00 01/14/17 12:00 97.6 69 16 104/53 98 01/14/17 01/14/17 01/15/17 15:00 23:00 07:00 Intake Total 360 ml 280 ml 40 ml Output Total 250 ml 120 ml 100 ml Balance 110 ml 160 ml -60 ml Intake Oral 360 ml 280 ml 40 ml Output Urine Total 250 ml 120 ml 100 ml # Bowel Movements 0 0 0 Result Diagram: 01/14/17 0752 01/14/17 0546 Imaging Last Impressions Chest X-Ray 01/13/17 0028 Signed Impressions: Service Date/Time: December 00:47 - CONCLUSION: No acute cardiopulmonary abnormality is identified. Jai Kelley MD A/P Problem List: (1) Congestive heart failure Status: Acute Plan: Pt has been having issues with LE for at least the last 6 months, this has been worsening with increased pain and redness over the last 3 weeks. - Pt had been on diuretics intermittently but has not been taking them due to increased urination - Pt was given Lasix 40mg IV in the ED - [facility] cath for accurate I&Os - Weigh patient daily - Continue diuresis with IV Lasix and potassium - 2D echo, pt with hx of diastolic dysfunction - Monitor renal function closely during diuresis - Resume Metoprolol, Cardizem, Propafenone. Hold on resuming Losartan for now unless BP elevates - PT evaluation - Pt is quite debilitated and will likely need SNF placement at the end of this hospitalization. I did speak with her for over 30 mins regarding her case and she may need jail care following a stay at rehab as she is becoming increasingly difficult for him to care for her at home. - No DVT prophylaxis at this time due to elevated INR improved with iv diuresis but left lower ext still red/very tender and could be cellulitis. added vanco and slightly better. and hold next dose lasix due to rising cr. today bmp pending. hold coumadin. vit k due to coumadin toxicity .monitor. (2) Coagulopathy Status: Acute Plan: see above (3) Declining functional status Status: Chronic Plan: - See above. - Consult CM (4) A-fib Status: Chronic Plan: - See above. - Cont. BB, CCB, Propafenone - Telemetry (5) HTN (hypertension) Status: Chronic Plan: - See above. (6) CKD (chronic kidney disease) stage 3, GFR 30-59 ml/min Status: Chronic Plan: - Labs are stable at admission - Monitor closely during diuresis (7) Hyperparathyroidism Status: Resolved Plan: - Pt had parathyroid surgery in [place] in 2014 - Cont. Calcium supplementation - Pt follows with Dr. Ryder (8) CAD (coronary artery disease) Status: Chronic Problem Qualifiers (1) Congestive heart failure: Qualified Code: I50.9 - Acute on chronic congestive heart failure, unspecified congestive heart failure type (2) A-fib: Qualified Code: I48.2 - Chronic atrial fibrillation Sam Cabrera MD Jan 15, 2017 10:04
[2017-01-15 10:08] LABS: INTERNATIONAL NORMALIZED RATIO 1.8 RATIO; PROTHROMBIN TIME - PATIENT 20.4 SEC (9.8-11.6)
[2017-01-15 10:29] LABS: BICARBONATE 26.8 MEQ/L (21.0-32.0); POTASSIUM 4.5 MEQ/L (3.5-5.1)
[2017-01-15 11:03] LABS: AUTOMATED NEUTROPHIL # 12.4 TH/MM3 (1.8-7.7); BASOPHIL % 0.3 % (0.0-2.0); EOSINOPHIL % 0.2 % (0.0-4.0); HEMATOCRIT 26.5 % (35.0-46.0); HEMO FLAGS AUTO DIFF; LYMPH % 7.3 % (9.0-44.0); MEAN CELL VOLUME 94.4 FL (80.0-100.0); MEAN CORPUSCULAR HEMOGLOBIN 32.4 PG (27.0-34.0); MEAN CORPUSCULAR HGB CONC 34.3 % (32.0-36.0); MONO % 4.8 % (0.0-8.0); NEUT % 87.4 % (16.0-70.0); PLATELET COUNT 111 TH/MM3 (150-450); RED BLOOD COUNT 2.81 MIL/MM3 (4.00-5.30); RED CELL DISTRIBUTION WIDTH 17.7 % (11.6-17.2); WHITE BLOOD COUNT 14.1 TH/MM3 (4.0-11.0)
[2017-01-15 11:06] LABS: ACANTHOCYTES 1+ (NORMAL); BANDS 4 % (0-6); EOSINOPHILS 1 % (0-4); NEUTROPHIL # MANUAL DIFF 12.7 TH/MM3 (1.8-7.7); PLATELET ESTIMATE SMEAR LOW (NORMAL); PLATELET MORPHOLOGY NORMAL (NORMAL); POLYS (SEG NEUTROPHILS) 86 % (16-70); SCAN/DIFF FINAL DIFF MANUAL; WBC DIFF SAMPLE 100
[2017-01-15] MEDS: SODIUM CHLOR 0.9% 1000 ML INJ 1,000 ML IV SCH (13:13)
[2017-01-15] MEDS: cefTRIAXone INJ 1,000 MG in SODIUM CHLORIDE 0.9% INJ 100 ML IV SCH (13:13)
[2017-01-15] MEDS: POTASSIUM CHLORIDE 20 MEQ CONTROLLED RELEASE TAB PO SCH (17:23)
[2017-01-15] MEDS: ATORVASTATIN 80 MG TAB PO SCH (21:05)
[2017-01-16] VITALS (10 sets, daily range): BP systolic 104–144; BP diastolic 54–72; PULSE 56–93; RESP 16–24; TEMP 97–99.2; O2SAT 94–98
[2017-01-16] MEDS: PROPAFENONE HCL 150 MG TAB PO SCH ×3 (05:49→20:54)
[2017-01-16] MEDS: SODIUM CHLOR 0.9% 1000 ML INJ 1,000 ML IV SCH (09:02)
[2017-01-16] MEDS: DILTIAZEM-CD 300 MG CAP ER PO SCH (09:03)
[2017-01-16] MEDS: CALCITRIOL 0.25 MCG CAP PO SCH ×3 (09:03→17:13)
[2017-01-16] MEDS: SODIUM CHLORIDE 0.9% FLUSH 10 ML FLUSH IV FLUSH SCH ×2 (09:03→20:53)
[2017-01-16] MEDS: METOPROLOL TARTRATE 100 MG TAB PO SCH ×2 (09:03→20:54)
--- NOTE | 2017-01-16 09:10 | HHI.PR ---
Subjective Remarks weak. trying to eat left leg painful Objective Vitals oriented very weak appearing heart reg lung cta abd s/nt ext lower ext edema to thigh worse on left with lower ext redness and tenderness. pt says this is old Vital Signs Date Time Temp Pulse Resp B/P Pulse Ox O2 Delivery O2 Flow Rate FiO2 01/16/17 04:32 96 Nasal Cannula 2.00 01/16/17 04:00 Nasal Cannula 2.00 01/16/17 04:00 98.7 76 22 131/66 97 01/16/17 00:00 98.1 56 22 104/54 95 01/16/17 00:00 Nasal Cannula 2.00 01/15/17 20:09 55 01/15/17 20:00 Nasal Cannula 2.00 01/15/17 20:00 98.2 88 20 113/57 95 01/15/17 16:00 98.0 56 20 110/54 96 01/15/17 14:30 Nasal Cannula 2.00 01/15/17 12:00 Nasal Cannula 2.00 01/15/17 12:00 98.2 76 20 114/55 96 01/15/17 01/15/17 01/16/17 15:00 23:00 07:00 Intake Total 568 ml 681 ml 434 ml Output Total 250 ml 100 ml 150 ml Balance 318 ml 581 ml 284 ml Intake Oral 480 ml 240 ml IV Total 88 ml 441 ml 434 ml Output Urine Total 250 ml 100 ml 150 ml # Bowel Movements 0 Result Diagram: 01/15/17 0825 01/16/17 0645 Imaging Last Impressions Chest X-Ray 01/13/17 0028 Signed Impressions: Service Date/Time: December 00:47 - CONCLUSION: No acute cardiopulmonary abnormality is identified. Jai Kelley MD A/P Problem List: (1) Congestive heart failure Status: Acute Plan: Pt has been having issues with LE for at least the last 6 months, this has been worsening with increased pain and redness over the last 3 weeks. - Pt had been on diuretics intermittently but has not been taking them due to increased urination - Pt was given Lasix 40mg IV in the ED - [facility] cath for accurate I&Os - 2D echo, pt with hx of diastolic dysfunction - Resume Metoprolol, Cardizem, Propafenone. Hold on resuming Losartan for now unless BP elevates - Pt is quite debilitated and will likely need SNF placement at the end of this hospitalization. I did speak with her for over 30 mins regarding her case and she may need half-way care following a stay at rehab as she is becoming increasingly difficult for him to care for her at home. -she appears to have some LLE cellulitis - No DVT prophylaxis at this time due to elevated INR -Pt was on lasix but now also poor po intake. She has developed acute/ckd 3. etiology could be multifactorial from her chf and volume imbalance. she is noted to have some urine eosinophils so AIN is possible will stop vanco. she is on rocephin consult nephrology to assist with david management u/s left leg but doubt dvt given her inr of over 9 on admission. (2) Acute worsening of stage 3 chronic kidney disease Status: Acute Plan: see above (3) Coagulopathy Status: Acute Plan: see above (4) Declining functional status Status: Chronic Plan: - See above. - Consult CM (5) A-fib Status: Chronic Plan: - See above. - Cont. BB, CCB, Propafenone - Telemetry (6) HTN (hypertension) Status: Chronic Plan: - See above. (7) Hyperparathyroidism Status: Resolved Plan: - Pt had parathyroid surgery in [place] in 2014 - Cont. Calcium supplementation - Pt follows with Dr. Ryder (8) CAD (coronary artery disease) Status: Chronic Problem Qualifiers (1) Congestive heart failure: Qualified Code: I50.9 - Acute on chronic congestive heart failure, unspecified congestive heart failure type (2) A-fib: Qualified Code: I48.2 - Chronic atrial fibrillation Sam Cabrera MD Jan 16, 2017 09:10
[2017-01-16] MEDS: ACETAMINOPHEN 325 MG TAB PO PRN (11:24)
--- NOTE | 2017-01-16 11:27 | RADRPT ---
EXAM DATE/TIME: 01/16/2017 10:38 [facility] COMPARISON: No previous studies available for comparison. INDICATIONS : Left leg swelling. MEDICAL HISTORY : Hypothyroidism. Congestive heart failure. Hypercholesterolemia. CAD. A-fib. Hypertension. GERD. MR SA. SURGICAL HISTORY : Cholecystectomy. Coronary artery stent. Hysterectomy. Cardiac cath. Right shoulder surgery. Laminect bradly. Right knee replacement. Thyroidectomy. ENCOUNTER: Initial ACUITY: 1 day PAIN SCORE: 8/10 LOCATION: Left leg. TECHNIQUE: Venous ultrasound of the leg was performed from the inguinal ligament to the proximal calf. Real-karly e, color Doppler and spectral tracing, compression and augmentation techniques were used. FINDINGS: There is normal compressibility of the deep venous system from the inguinal region to the proximal ca lf. No echogenic clot is seen in the lumen of the common femoral, femoral, popliteal, and posterior tibial veins. There is a normal response of the venous system to proximal and distal augmentation an d respiration. CONCLUSION: Negative for deep venous thrombosis. Jermaine Nye MD FACR on January 16, 2017 at 11:25 Board Certified Radiologist. This report was verified electronically.
[2017-01-16] MEDS: cefTRIAXone INJ 1,000 MG in SODIUM CHLORIDE 0.9% INJ 100 ML IV SCH (13:18)
--- NOTE | 2017-01-16 16:38 | PD.CONS ---
HPI Service Nephrology Consult Requested By Dr. Crockett Reason for Consult Acute renal failure Primary Care Physician Robles Samaniego MD History of Present Illness Patient is a 81-year-old white female with history of increasing edema, she did use wraps around her legs with the left leg was swollen and has cellulitis with redness she has excruciating pain and could not bear any weight and has to come to the hospital, here she was diagnosed with urinary tract infection started on ceftriaxone she has chronic renal insufficiency and non-it's getting worse creatinine is 2.4 Review of Systems Constitutional: COMPLAINS OF: Fatigue, Weight gain Respiratory: COMPLAINS OF: Shortness of breath Cardiovascular: COMPLAINS OF: Lower Extremity Edema Genitourinary: COMPLAINS OF: Urinary incontinence Musculoskeletal: COMPLAINS OF: Joint pain, Stiffness, Joint Swelling Neurologic: COMPLAINS OF: Abnormal gait Past Family Social History Allergies: Coded Allergies: Morphine (Verified Adverse Reaction, Intermediate, N/V, 01/13/17) *MDRO Multi-Drug Resistant Organism (Verified Adverse Reaction, Unknown, Cleared - 01/17/17, 01/17/17) Cleared: MRSA screen negative on 01/14/17 & 01/17/17 MRSA (wound)-2002 Past Medical History Atrial fibrillation, chronic CAD with hx of [place] Diastolic CHF CKD, stage 3 Hx of anemia and Cold agglutinin disease COPD Essential tremor GERD HTN Hx of hyperparathyroidism s/p parathyroidectomy Hyperlipidemia PVD Obesity 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 Diltiazem CD 24 HR 300 Mg Caper 300 Mg PO DAILY Metoprolol Tartrate 100 Mg Tab 100 Mg PO BID Losartan (Losartan Potassium) 100 Mg Tab 100 Mg PO DAILY Calcitriol 0.25 Mcg Cap 0.25 Mcg PO TID Warfarin 2.5 Mg Tab 2.5 Mg PO DAILY 2.5mg Tue-Tue Warfarin 5 Mg Tab 5 Mg PO DAILY 5mg Atorvastatin (Atorvastatin Calcium) 80 Mg Tab 80 Mg PO HS Terazosin (Terazosin HCl) 2 Mg Cap 2 Mg PO HS Aspirin 81 Mg Chew 81 Mg CHEW ONCE Active Ordered Medications Current Medications Medications (Trade) Dose Ordered Sig/Etta Route Start Time Stop Time Status Last Admin (NS Flush) 2 ml UNSCH PRN IVF 01/13/17 00:30 (Zofran Inj) 4 mg Q6H PRN IV 01/13/17 03:45 01/13/17 12:49 (Tylenol) 650 mg Q4H PRN PO 01/13/17 03:45 01/16/17 11:24 (Tylenol Supp) 650 mg Q4H PRN ID 01/13/17 03:45 (NS Flush) 2 ml BID IV FLUSH 01/13/17 09:00 01/16/17 09:03 (NS Flush) 2 ml UNSCH PRN IVF 01/13/17 03:45 (Lipitor) 80 mg HS PO 01/13/17 21:00 01/15/17 21:05 (Rocaltrol) 0.25 mcg TID PO 01/13/17 09:00 01/16/17 13:18 (Cardizem Cd) 300 mg DAILY PO 01/13/17 09:00 01/16/17 09:03 (Lopressor) 100 mg BID PO 01/13/17 09:00 01/16/17 09:03 Propafenone HCl 150 mg 150 mg Q8HR PO 01/13/17 14:00 01/16/17 13:19 (Rocephin Inj/NS Inj) 100 ml @ 200 mls/hr Q24H IV 01/15/17 13:00 01/16/17 13:18 Family History Noncontributory Social History Denies smoking or alcohol Physical Exam Vital Signs Vital Signs Date Time Temp Pulse Resp B/P Pulse Ox O2 Delivery O2 Flow Rate FiO2 01/16/17 16:12 Nasal Cannula 2.00 01/16/17 12:43 Nasal Cannula 2.00 01/16/17 12:00 99.2 93 22 125/65 96 01/16/17 08:02 81 01/16/17 08:00 Nasal Cannula 2.00 01/16/17 08:00 97.4 83 24 134/72 94 01/16/17 04:32 96 Nasal Cannula 2.00 01/16/17 04:00 Nasal Cannula 2.00 01/16/17 04:00 98.7 76 22 131/66 97 01/16/17 00:00 98.1 56 22 104/54 95 01/16/17 00:00 Nasal Cannula 2.00 01/15/17 20:09 55 01/15/17 20:00 Nasal Cannula 2.00 01/15/17 20:00 98.2 88 20 113/57 95 Physical Exam GENERAL: Well-nourished, well-developed obese patient. SKIN: Warm and dry. HEAD: Normocephalic. EYES: No scleral icterus. No injection or drainage. NECK: Supple, trachea midline. No JVD or lymphadenopathy. CARDIOVASCULAR: Irregular RESPIRATORY: Breath sounds diminished air entry at bases GASTROINTESTINAL: Abdomen soft, non-tender, distended. EXTREMITIES: No cyanosis, 3+ edema. Cellulitis left leg NEUROLOGICAL: Awake, alert, and oriented x 3. Non-focal. Laboratory Laboratory Tests Test 01/15/17 01/16/17 22:45 06:45 Urine Eosinophils 0-2 Sodium Level 138 Potassium Level 5.0 Chloride Level 104 Carbon Dioxide Level 26.0 Anion Gap 8 Blood Urea Nitrogen 72 Creatinine 2.42 Estimat Glomerular Filtration 19 Rate Random Glucose 97 Calcium Level 8.0 Random Vancomycin Level 8.1 Date/Time Procedure Status Source Growth 01/13/17 11:35 Urine Culture - Final Complete Urine Catheterized Urine Proteus Mirabilis Result Diagram: 01/15/17 0825 01/16/17 0645 Imaging Last Impressions Lower Extremity Ultrasound 01/16/17 0000 Signed Impressions: Service Date/Time: Monday, January 16, 2017 10:38 - CONCLUSION: Negative for deep venous thrombosis. Jermaine Nye MD FACR Chest X-Ray 01/13/17 0028 Signed Impressions: Service Date/Time: December 00:47 - CONCLUSION: No acute cardiopulmonary abnormality is identified. Jai Kelley MD Assessment and Plan Problem List: (1) Acute worsening of stage 3 chronic kidney disease Plan: I will give her albumin and started on Bumex to shukri to continue to monitor renal function obtained baseline kidney ultrasound Check urine sodium Monitor urine output She is on ceftriaxone for urinary tract infection Follow BMP Avoid nephrotoxins (2) Congestive heart failure Plan: Patient will be started on Bumex (3) Leg edema Plan: Chronic edema with left leg cellulitis (4) A-fib Plan: Continue to monitor (5) CAD (coronary artery disease) Plan: Has previous stent (6) Urinary tract infection Plan: Proteus she is treated with ceftriaxone Problem Qualifiers (1) Congestive heart failure: Qualified Code: I50.9 - Acute on chronic congestive heart failure, unspecified congestive heart failure type (2) A-fib: Qualified Code: I48.2 - Chronic atrial fibrillation Clay Wayne MD Jan 16, 2017 16:38
[2017-01-16] MEDS: ALBUMIN HUMAN 25% 25 GM/100 ML BAGP IV SCH (17:28)
[2017-01-16] MEDS: BUMETANIDE INJ 1 MG/4 ML VIAL IV PUSH SCH (17:29)
--- NOTE | 2017-01-16 18:02 | RADRPT ---
EXAM DATE/TIME: 01/16/2017 17:17 [facility] COMPARISON: CT ABDOMEN & PELVIS W/O CONTRAST, May 19, 2014, 14:31. MRI ABDOMEN W & W/O CONTRAST, April 222013, 21:59. INDICATIONS : Increased BUN/Creatinine. MEDICAL HISTORY : Congestive heart failure. Hypercholesterolemia. Hypertension. Thyroid disease. Coronary artery diseas e. Afib. Gastroesophageal reflux disease. Incontinence. Arthritis. Chronic kidney disease. SURGICAL HISTORY : Cholecystectomy. Coronary artery stent. Tonsillectomy. Hysterectomy. Right shoulder surgery. Bilatera l feet surgery. Laminectomy. Right thumb surgery. Right knee replacement. Parathyroidectomy. ENCOUNTER: Initial ACUITY: 1 day PAIN SCORE: 3/10 LOCATION: Bilateral flank MEASUREMENTS: RIGHT KIDNEY: 10.2 x 5.2 x 5.2 cm LEFT KIDNEY: 10.2 x 5.3 x 6.4 cm FINDINGS: RIGHT KIDNEY: The renal cortex is thin. Multiple cysts are present. There is a simple cyst in the lower pole bibi uring 2.0 x 1.9 cm. A cyst in the upper pole measures 2.3 x 2.2 cm and contains a focal area of hype rechogenicity. This area was previously evaluated with MRI and CT in 2013 and the appearance of that time was felt to be characteristic of a proteinaceous cyst. LEFT KIDNEY: There is thinning of the renal cortex. Cyst in the upper pole measures 1.3 x 1.2 cm. BLADDER: Not well seen. CONCLUSION: No evidence of hydronephrosis. Bilateral renal cortical thinning. Bilateral renal cysts. Marvin Del Castillo MD on January 16, 2017 at 17:57 Board Certified Radiologist. This report was verified electronically.
[2017-01-16] MEDS: ATORVASTATIN 80 MG TAB PO SCH (20:54)
[2017-01-17] VITALS (11 sets, daily range): BP systolic 115–152; BP diastolic 55–97; PULSE 59–80; RESP 20–28; TEMP 97.3–98.6; O2SAT 93–97
[2017-01-17] MEDS: PROPAFENONE HCL 150 MG TAB PO SCH ×3 (06:31→20:49)
[2017-01-17] MEDS: ALBUMIN HUMAN 25% 25 GM/100 ML BAGP IV SCH ×2 (06:31→16:54)
[2017-01-17 08:17] LABS: BICARBONATE 26.7 MEQ/L (21.0-32.0); POTASSIUM 4.5 MEQ/L (3.5-5.1)
[2017-01-17] MEDS: BUMETANIDE INJ 1 MG/4 ML VIAL IV PUSH SCH ×2 (08:26→16:54)
[2017-01-17] MEDS: DILTIAZEM-CD 300 MG CAP ER PO SCH (08:26)
[2017-01-17] MEDS: SODIUM CHLORIDE 0.9% FLUSH 10 ML FLUSH IV FLUSH SCH ×2 (08:26→20:50)
[2017-01-17] MEDS: CALCITRIOL 0.25 MCG CAP PO SCH ×3 (08:26→16:54)
[2017-01-17] MEDS: METOPROLOL TARTRATE 100 MG TAB PO SCH ×2 (08:26→20:49)
--- NOTE | 2017-01-17 09:23 | HHI.PR ---
Subjective Remarks awake/alert. Objective Vitals heart reg lung cta abd s/nt ext lower ext pitting edema left worse with redness/tenderness mel[place] Vital Signs Date Time Temp Pulse Resp B/P Pulse Ox O2 Delivery O2 Flow Rate FiO2 01/17/17 08:49 97 Nasal Cannula 3.00 01/17/17 08:39 69 01/17/17 08:06 97.8 76 20 149/66 97 01/17/17 06:07 98.1 80 20 116/55 96 01/17/17 04:00 Nasal Cannula 2.00 01/17/17 00:00 98.1 64 20 115/60 94 01/17/17 00:00 Nasal Cannula 2.00 01/16/17 21:39 98 Nasal Cannula 2.00 01/16/17 20:20 72 01/16/17 20:00 Nasal Cannula 2.00 01/16/17 19:56 97.2 72 16 144/63 97 01/16/17 16:12 Nasal Cannula 2.00 01/16/17 16:00 97.0 71 22 121/56 95 01/16/17 12:43 Nasal Cannula 2.00 01/16/17 12:00 99.2 93 22 125/65 96 01/16/17 01/16/17 01/17/17 15:00 23:00 07:00 Intake Total 340 ml 250 ml Output Total 250 ml 550 ml 725 ml Balance 90 ml -300 ml -725 ml Intake Oral 240 ml IV Total 100 ml Albumin 250 ml Output Urine Total 250 ml 550 ml 725 ml # Bowel Movements 1 Result Diagram: 01/15/17 0825 01/17/17 0653 Imaging Last Impressions Chest X-Ray 01/13/17 0028 Signed Impressions: Service Date/Time: December 00:47 - CONCLUSION: No acute cardiopulmonary abnormality is identified. Jai Kelley MD A/P Problem List: (1) Congestive heart failure Status: Acute Plan: Pt has been having issues with LE for at least the last 6 months, this has been worsening with increased pain and redness over the last 3 weeks. - Pt had been on diuretics intermittently but has not been taking them due to increased urination - Pt was given Lasix 40mg IV in the ED - [facility] cath for accurate I&Os - 2D echo, pt with hx of diastolic dysfunction - Resume Metoprolol, Cardizem, Propafenone. Hold on resuming Losartan for now unless BP elevates - Pt is quite debilitated and will likely need SNF placement at the end of this hospitalization. I did speak with her for over 30 mins regarding her case and she may need salvage determiner care following a stay at rehab as she is becoming increasingly difficult for him to care for her at home. -she appears to have some LLE cellulitis - No DVT prophylaxis at this time due to elevated INR -Pt was on lasix but now also poor po intake. She has developed acute/ckd 3. etiology could be multifactorial from her chf and volume imbalance. she is noted to have some urine eosinophils so AIN is possible will stop vanco. she is on rocephin consult nephrology to assist with david management. david improved with iv bumex and albumen u/s left leg neg for dvt (2) Acute worsening of stage 3 chronic kidney disease Status: Acute Plan: see above (3) Coagulopathy Status: Acute Plan: see above (4) Declining functional status Status: Chronic Plan: - See above. - Consult CM (5) A-fib Status: Chronic Plan: - See above. - Cont. BB, CCB, Propafenone - Telemetry (6) HTN (hypertension) Status: Chronic Plan: - See above. (7) Hyperparathyroidism Status: Resolved Plan: - Pt had parathyroid surgery in [place] in 2014 - Cont. Calcium supplementation - Pt follows with Dr. Ryder (8) CAD (coronary artery disease) Status: Chronic Problem Qualifiers (1) Congestive heart failure: Qualified Code: I50.9 - Acute on chronic congestive heart failure, unspecified congestive heart failure type (2) A-fib: Qualified Code: I48.2 - Chronic atrial fibrillation Sam Cabrera MD Jan 17, 2017 09:23
[2017-01-17] MEDS: cefTRIAXone INJ 1,000 MG in SODIUM CHLORIDE 0.9% INJ 100 ML IV SCH (12:33)
[2017-01-17] MEDS: ACETAMINOPHEN 325 MG TAB PO PRN (12:33)
[2017-01-17] MEDS ORDERED: PHARMACY ORDERED LAB ONE (12:45)
--- NOTE | 2017-01-17 15:52 | HHI.NPPN ---
Subjective History of Present Illness 81 year old with UTI, DM, CKD/VIKKI/CHF Review of Systems General Constitutional: Fatigue Cardiovascular Cardiac: Edema Objective Data Data 01/16/17 01/17/17 18:59 06:59 Intake Total 340 ml 250 ml Output Total 250 ml 1275 ml Balance 90 ml -1025 ml Intake Oral 240 ml IV Total 100 ml Albumin 250 ml Output Urine Total 250 ml 1275 ml # Bowel Movements 1 Vital Signs Date Time Temp Pulse Resp B/P Pulse Ox O2 Delivery O2 Flow Rate FiO2 01/17/17 12:20 98.6 76 20 149/68 97 01/17/17 10:23 97 Nasal Cannula 2.00 01/17/17 08:49 97 Nasal Cannula 3.00 01/17/17 08:39 69 01/17/17 08:06 97.8 76 20 149/66 97 01/17/17 06:07 98.1 80 20 116/55 96 01/17/17 04:00 Nasal Cannula 2.00 01/17/17 00:00 98.1 64 20 115/60 94 01/17/17 00:00 Nasal Cannula 2.00 01/16/17 21:39 98 Nasal Cannula 2.00 01/16/17 20:20 72 01/16/17 20:00 Nasal Cannula 2.00 01/16/17 19:56 97.2 72 16 144/63 97 01/16/17 16:12 Nasal Cannula 2.00 01/16/17 16:00 97.0 71 22 121/56 95 -: 01/15/17 0825 01/17/17 0653 Physical Exam General Appearance: Well Developed, Well Nourished Neck Neck Exam: Neck Supple Pulmonary Resp Exam: Decreased Bases Cardiology CV Exam: Irregular, Arrhythmia Gastrointestinal/Abdomen GI Exam: Soft, Non-Tender, Bowel Sounds Present Extremeties Extremities Exam: Moderate Edema Assessment/Plan Problem List: (1) Acute worsening of stage 3 chronic kidney disease Plan: she responded well to Albumin Bumex diuresis cr declined U Na not high UTI is treated urine eosinophils are not reliable test if UTI present appears to be pre renal and underlying CKD contributing factors UD reviewed bilateral renal cyst and thinning of cortex (2) Congestive heart failure Plan: Patient on Bumex (3) Leg edema Plan: Chronic edema with left leg cellulitis (4) A-fib Plan: Continue to monitor (5) CAD (coronary artery disease) Plan: Has previous stent (6) Urinary tract infection Plan: Proteus she is treated with ceftriaxone Problem Qualifiers (1) Congestive heart failure: Qualified Code: I50.9 - Acute on chronic congestive heart failure, unspecified congestive heart failure type (2) A-fib: Qualified Code: I48.2 - Chronic atrial fibrillation Clay Wayne MD Jan 17, 2017 15:52
[2017-01-17] MEDS: WARFARIN SOD 5 MG TAB PO SCH (16:55)
[2017-01-17] MEDS: ATORVASTATIN 80 MG TAB PO SCH (20:49)
[2017-01-18] VITALS (10 sets, daily range): BP systolic 134–167; BP diastolic 69–74; PULSE 72–85; RESP 20–30; TEMP 97.4–98.8; O2SAT 95–97
[2017-01-18] MEDS: ACETAMINOPHEN 325 MG TAB PO PRN ×2 (01:17→20:17)
[2017-01-18] MEDS: PROPAFENONE HCL 150 MG TAB PO SCH ×3 (05:27→20:16)
[2017-01-18] MEDS: ALBUMIN HUMAN 25% 25 GM/100 ML BAGP IV SCH ×2 (05:27→17:50)
[2017-01-18] MEDS: DILTIAZEM-CD 300 MG CAP ER PO SCH (08:00)
[2017-01-18] MEDS: SODIUM CHLORIDE 0.9% FLUSH 10 ML FLUSH IV FLUSH SCH ×2 (08:01→20:17)
[2017-01-18] MEDS: BUMETANIDE INJ 1 MG/4 ML VIAL IV PUSH SCH ×2 (08:01→17:50)
[2017-01-18] MEDS: METOPROLOL TARTRATE 100 MG TAB PO SCH ×2 (08:01→20:16)
[2017-01-18] MEDS: CALCITRIOL 0.25 MCG CAP PO SCH ×3 (08:01→17:50)
[2017-01-18] MEDS: cefTRIAXone INJ 1,000 MG in SODIUM CHLORIDE 0.9% INJ 100 ML IV SCH (12:08)
[2017-01-18 12:39] LABS: AUTOMATED NEUTROPHIL # 4.4 TH/MM3 (1.8-7.7); BASOPHIL % 0.3 % (0.0-2.0); EOSINOPHIL % 0.7 % (0.0-4.0); LYMPH % 8.3 % (9.0-44.0); LYMPHOCYTE # 0.4 TH/MM3 (1.0-4.8); NEUT % 83.7 % (16.0-70.0); PLATELET COUNT 157 TH/MM3 (150-450); WHITE BLOOD COUNT 5.2 TH/MM3 (4.0-11.0)
[2017-01-18 12:45] LABS: INTERNATIONAL NORMALIZED RATIO 1.1 RATIO; PROTHROMBIN TIME - PATIENT 12.7 SEC (9.8-11.6)
[2017-01-18 13:09] LABS: BICARBONATE 26.9 MEQ/L (21.0-32.0)
[2017-01-18 13:12] LABS: HEMATOCRIT 27.5 % (35.0-46.0); MEAN CORPUSCULAR HEMOGLOBIN 30.5 PG (27.0-34.0); MEAN CORPUSCULAR HGB CONC 33.1 % (32.0-36.0); RED BLOOD COUNT 2.99 MIL/MM3 (4.00-5.30)
[2017-01-18 13:13] LABS: RED CELL DISTRIBUTION WIDTH 17.9 % (11.6-17.2)
[2017-01-18 13:14] LABS: HEMO FLAGS AUTO DIFF
--- NOTE | 2017-01-18 13:19 | HHI.NPPN ---
Subjective History of Present Illness 81 year old with UTI, DM, CKD/VIKKI/CHF Review of Systems General Constitutional: Fatigue Cardiovascular Cardiac: Edema Objective Data Data 01/17/17 01/18/17 19:00 07:00 Intake Total 355 ml 490 ml Output Total 1125 ml 1826 ml Balance -770 ml -1336 ml Intake Oral 240 ml 240 ml IV Total 115 ml Albumin 250 ml Output Urine Total 1125 ml 1825 ml Stool Total 1 ml # Bowel Movements 0 0 Vital Signs Date Time Temp Pulse Resp B/P Pulse Ox O2 Delivery O2 Flow Rate FiO2 01/18/17 12:06 98.8 85 20 159/72 97 01/18/17 10:51 96 Nasal Cannula 2.00 01/18/17 08:06 98.1 76 20 155/72 96 01/18/17 08:00 75 01/18/17 08:00 Nasal Cannula 2.00 01/18/17 04:20 97.8 75 26 134/69 95 01/18/17 04:00 Nasal Cannula 2.00 01/18/17 00:00 Nasal Cannula 2.00 01/17/17 23:50 97.5 79 28 152/97 93 01/17/17 21:03 97.3 73 22 132/84 96 01/17/17 20:00 Nasal Cannula 2.00 01/17/17 20:00 71 01/17/17 17:56 68 01/17/17 17:47 Nasal Cannula 2.00 01/17/17 16:08 98.1 59 21 129/63 96 -: 01/18/17 1152 01/18/17 1152 Physical Exam General Appearance: Well Developed, Well Nourished Neck Neck Exam: Neck Supple Pulmonary Resp Exam: Decreased Bases Cardiology CV Exam: Irregular, Arrhythmia Gastrointestinal/Abdomen GI Exam: Soft, Non-Tender, Bowel Sounds Present Extremeties Extremities Exam: Moderate Edema Assessment/Plan Problem List: (1) Acute worsening of stage 3 chronic kidney disease Plan: she responded well to Albumin Bumex diuresis UOP 2.9 L on diuertic cr declined U Na not high UTI is treated urine eosinophils are not reliable test if UTI present appears to be pre renal and underlying CKD contributing factors US reviewed bilateral renal cyst and thinning of cortex (2) Congestive heart failure Plan: Patient on Bumex (3) Leg edema Plan: Chronic edema with left leg cellulitis (4) A-fib Plan: Continue to monitor (5) CAD (coronary artery disease) Plan: Has previous stent (6) Urinary tract infection Plan: Proteus she is treated with ceftriaxone Problem Qualifiers (1) Congestive heart failure: Qualified Code: I50.9 - Acute on chronic congestive heart failure, unspecified congestive heart failure type (2) A-fib: Qualified Code: I48.2 - Chronic atrial fibrillation Clay Wayne MD Jan 18, 2017 13:18
[2017-01-18 13:40] LABS: ACANTHOCYTES 1+ (NORMAL); OVALOCYTES 1+ (NORMAL); PLATELET ESTIMATE SMEAR NORMAL (NORMAL); PLATELET MORPHOLOGY NORMAL (NORMAL); SCAN/DIFF AUTO DIFF CONFIRMED
--- NOTE | 2017-01-18 16:19 | HHI.PR ---
Subjective Remarks No new complaints. Pt put out about 2.9L of UOP in the last 24 hours. Objective Vitals Vital Signs Date Time Temp Pulse Resp B/P Pulse Ox O2 Delivery O2 Flow Rate FiO2 01/18/17 12:06 98.8 85 20 159/72 97 01/18/17 12:00 Nasal Cannula 2.00 01/18/17 10:51 96 Nasal Cannula 2.00 01/18/17 08:06 98.1 76 20 155/72 96 01/18/17 08:00 75 01/18/17 08:00 Nasal Cannula 2.00 01/18/17 04:20 97.8 75 26 134/69 95 01/18/17 04:00 Nasal Cannula 2.00 01/18/17 00:00 Nasal Cannula 2.00 01/17/17 23:50 97.5 79 28 152/97 93 01/17/17 21:03 97.3 73 22 132/84 96 01/17/17 20:00 Nasal Cannula 2.00 01/17/17 20:00 71 01/17/17 17:56 68 01/17/17 17:47 Nasal Cannula 2.00 01/17/17 01/17/17 01/18/17 14:59 22:59 06:59 Intake Total 355 ml 240 ml 250 ml Output Total 1125 ml 825 ml 1001 ml Balance -770 ml -585 ml -751 ml Intake Oral 240 ml 240 ml 0 ml IV Total 115 ml Albumin 250 ml Output Urine Total 1125 ml 825 ml 1000 ml Stool Total 1 ml # Bowel Movements 0 0 Result Diagram: 01/18/17 1152 01/18/17 1152 Other Results Laboratory Tests Test 01/16/17 01/17/17 01/17/17 01/18/17 17:50 06:53 08:50 11:52 Urine Random Sodium 30 MEQ/L Sodium Level 138 MEQ/L 140 MEQ/L Potassium Level 4.5 MEQ/L 4.0 MEQ/L Chloride Level 103 MEQ/L 102 MEQ/L Carbon Dioxide Level 26.7 MEQ/L 26.9 MEQ/L Anion Gap 8 MEQ/L 11 MEQ/L Blood Urea Nitrogen 74 MG/DL 68 MG/DL Creatinine 2.02 MG/DL 1.72 MG/DL Estimat Glomerular Filtration 24 ML/MIN 29 ML/MIN Rate Random Glucose 91 MG/DL 112 MG/DL Calcium Level 8.2 MG/DL 8.7 MG/DL Nasal Screen MRSA (PCR) MRSA NOT DETECTED White Blood Count 5.2 TH/MM3 Red Blood Count 2.99 MIL/MM3 Hemoglobin 9.1 GM/DL Hematocrit 27.5 % Mean Corpuscular Volume 92.0 FL Mean Corpuscular Hemoglobin 30.5 PG Mean Corpuscular Hemoglobin 33.1 % Concent Red Cell Distribution Width 17.9 % Platelet Count 157 TH/MM3 Mean Platelet Volume 7.8 FL Neutrophils (%) (Auto) 83.7 % Lymphocytes (%) (Auto) 8.3 % Monocytes (%) (Auto) 7.0 % Eosinophils (%) (Auto) 0.7 % Basophils (%) (Auto) 0.3 % Neutrophils # (Auto) 4.4 TH/MM3 Lymphocytes # (Auto) 0.4 TH/MM3 Monocytes # (Auto) 0.4 TH/MM3 Eosinophils # (Auto) 0.0 TH/MM3 Basophils # (Auto) 0.0 TH/MM3 CBC Comment AUTO DIFF Differential Comment AUTO DIFF CONFIRMED Platelet Estimate NORMAL Platelet Morphology Comment NORMAL Ovalocytes 1+ Acanthocytes 1+ Hematology Comments Prothrombin Time 12.7 SEC Prothromb Time International 1.1 RATIO Ratio Imaging Last Impressions Renal Ultrasound 01/16/17 0000 Signed Impressions: Service Date/Time: Monday, January 16, 2017 17:17 - CONCLUSION: No evidence of hydronephrosis. Bilateral renal cortical thinning. Bilateral renal cysts. Marvin Del Castillo MD Lower Extremity Ultrasound 01/16/17 0000 Signed Impressions: Service Date/Time: Monday, January 16, 2017 10:38 - CONCLUSION: Negative for deep venous thrombosis. Jermaine Nye MD FACR Chest X-Ray 01/13/17 0028 Signed Impressions: Service Date/Time: December 00:47 - CONCLUSION: No acute cardiopulmonary abnormality is identified. Jai Kelley MD Objective Remarks General: NAD, AAOx3 Chest: CTA Cardiac: Regular Abd: +BS, soft ND/NT Ext: Bilateral LE edema, L>R A/P Problem List: (1) Congestive heart failure Status: Acute Plan: - Pt has been having issues with LE for at least the last 6 months, this has been worsening with increased pain and redness over the last 3 weeks. - Pt had been on diuretics intermittently but has not been taking them due to increased urination - Pt was given Lasix 40mg IV in the ED - [facility] cath for accurate I&Os - 2D echo, pt with hx of diastolic dysfunction - Pt was resumed on Metoprolol, Cardizem, Propafenone at admission. Losartan was held due to BP. - Pt is quite debilitated and will likely need SNF placement at the end of this hospitalization. - Pt was diuresed and was on Lasix but developed poor po intake and acute/CKD 3. Etiology could be multifactorial from her CHF and volume imbalance. - Nephrology was consulted - Pt was given Bumex and Albumin with improvement in the renal function - Pt put out 2.9L of UOP in the last 24 hours. - Pt appears to have some LLE cellulitis - LE US was negative for DVT. - Pt had been initially started on Vancomycin IV but this was switched to Rocephin on 01/15. (2) Acute worsening of stage 3 chronic kidney disease Status: Acute Plan: - See above (3) Coagulopathy Status: Acute Plan: - Coumadin was held at admission due to elevated INR of 5.2 - This worsened to INR 9 and pt was given Vitamin K SQ and PO - INR improved to 1.1 today - Coumadin resumed (4) Declining functional status Status: Chronic Plan: - See above. - Consult CM (5) A-fib Status: Chronic Plan: - See above. - Cont. BB, CCB, Propafenone - Telemetry (6) HTN (hypertension) Status: Chronic Plan: - See above. (7) Hyperparathyroidism Status: Resolved Plan: - Pt had parathyroid surgery in [place] in 2014 - Cont. Calcium supplementation - Pt follows with Dr. Ryder (8) CAD (coronary artery disease) Status: Chronic Assessment and Plan Patient examined. Assessment and plan formulated with Rola Pringle PA-C. I agree with the above. Problem Qualifiers (1) Congestive heart failure: Qualified Code: I50.9 - Acute on chronic congestive heart failure, unspecified congestive heart failure type (2) A-fib: Qualified Code: I48.2 - Chronic atrial fibrillation Rola Pringle Jan 18, 2017 16:19 Nate Perez DO Jan 19, 2017 01:33
[2017-01-18] MEDS: WARFARIN SOD 5 MG TAB PO SCH (17:50)
[2017-01-18] MEDS: ATORVASTATIN 80 MG TAB PO SCH (20:16)
[2017-01-19] VITALS (9 sets, daily range): BP systolic 157–169; BP diastolic 70–80; PULSE 74–91; RESP 20–22; TEMP 98.1–98.8; O2SAT 93–97
[2017-01-19] MEDS: ALBUMIN HUMAN 25% 25 GM/100 ML BAGP IV SCH (05:10)
[2017-01-19] MEDS: PROPAFENONE HCL 150 MG TAB PO SCH ×3 (05:10→20:36)
[2017-01-19 08:28] LABS: INTERNATIONAL NORMALIZED RATIO 1.2 RATIO; PROTHROMBIN TIME - PATIENT 13.3 SEC (9.8-11.6)
[2017-01-19] MEDS: CALCITRIOL 0.25 MCG CAP PO SCH ×3 (08:29→16:51)
[2017-01-19] MEDS: METOPROLOL TARTRATE 100 MG TAB PO SCH ×2 (08:29→20:36)
[2017-01-19] MEDS: DILTIAZEM-CD 300 MG CAP ER PO SCH (08:29)
[2017-01-19] MEDS: BUMETANIDE INJ 1 MG/4 ML VIAL IV PUSH SCH ×2 (08:29→16:51)
[2017-01-19] MEDS: ACETAMINOPHEN 325 MG TAB PO PRN ×2 (08:31→13:44)
[2017-01-19] MEDS: SODIUM CHLORIDE 0.9% FLUSH 10 ML FLUSH IV FLUSH SCH ×2 (08:33→20:36)
[2017-01-19 08:56] LABS: BICARBONATE 28.9 MEQ/L (21.0-32.0); MAGNESIUM 2.1 MG/DL (1.5-2.5); POTASSIUM 3.7 MEQ/L (3.5-5.1)
[2017-01-19 09:55] LABS: AUTOMATED NEUTROPHIL # 4.5 TH/MM3 (1.8-7.7); BASOPHIL % 0.3 % (0.0-2.0); EOSINOPHIL # 0.1 TH/MM3 (0-0.4); HEMATOCRIT 29.9 % (35.0-46.0); HEMO FLAGS DIFF FINAL; LYMPH % 11.1 % (9.0-44.0); LYMPHOCYTE # 0.6 TH/MM3 (1.0-4.8); MEAN CORPUSCULAR HEMOGLOBIN 35.6 PG (27.0-34.0); MEAN CORPUSCULAR HGB CONC 35.6 % (32.0-36.0); MONO % 7.4 % (0.0-8.0); NEUT % 80.2 % (16.0-70.0); PLATELET COUNT 148 TH/MM3 (150-450); RED BLOOD COUNT 2.99 MIL/MM3 (4.00-5.30); RED CELL DISTRIBUTION WIDTH 17.6 % (11.6-17.2); WHITE BLOOD COUNT 5.7 TH/MM3 (4.0-11.0)
[2017-01-19] MEDS: cefTRIAXone INJ 1,000 MG in SODIUM CHLORIDE 0.9% INJ 100 ML IV SCH (13:45)
--- NOTE | 2017-01-19 13:46 | HHI.NPPN ---
Subjective History of Present Illness 81 year old with UTI, DM, CKD/VIKKI/CHF Review of Systems General Constitutional: Fatigue Cardiovascular Cardiac: Edema Objective Data Data 01/18/17 01/19/17 19:00 07:00 Intake Total 480 ml 580 ml Output Total 1900 ml 1800 ml Balance -1420 ml -1220 ml Intake Oral 480 ml 480 ml Albumin 100 ml Output Urine Total 1900 ml 1800 ml # Bowel Movements 0 0 Vital Signs Date Time Temp Pulse Resp B/P Pulse Ox O2 Delivery O2 Flow Rate FiO2 01/19/17 08:05 98.8 83 20 157/70 94 01/19/17 08:00 96 Nasal Cannula 3.00 01/19/17 04:32 98.1 81 22 169/79 97 01/19/17 04:00 Nasal Cannula 3.00 01/19/17 00:00 Nasal Cannula 3.00 01/18/17 23:40 97.4 72 26 149/74 95 01/18/17 20:18 83 01/18/17 20:05 98.3 84 30 155/70 95 01/18/17 20:00 Nasal Cannula 3.00 01/18/17 17:51 96 Nasal Cannula 2.00 01/18/17 16:19 98.4 76 20 167/73 96 -: 01/19/17 0755 01/19/17 0755 Physical Exam General Appearance: Well Developed, Well Nourished Neck Neck Exam: Neck Supple Pulmonary Resp Exam: Decreased Bases Cardiology CV Exam: Irregular, Arrhythmia Gastrointestinal/Abdomen GI Exam: Soft, Non-Tender, Bowel Sounds Present Extremeties Extremities Exam: Moderate Edema, Pitting Edema Assessment/Plan Problem List: (1) Acute worsening of stage 3 chronic kidney disease Plan: she responded well to Albumin Bumex diuresis UOP 3.7 L on diuretic cr declined UTI is treated appears to be pre renal and underlying CKD contributing factors US reviewed bilateral renal cyst and thinning of cortex dc Albumin continue with Bumex and may switch to PO by am (2) Congestive heart failure Plan: Patient on Bumex (3) Leg edema Plan: Chronic edema with left leg cellulitis (4) A-fib Plan: Continue to monitor (5) CAD (coronary artery disease) Plan: Has previous stent (6) Urinary tract infection Plan: Proteus she is treated with ceftriaxone Problem Qualifiers (1) Congestive heart failure: Qualified Code: I50.9 - Acute on chronic congestive heart failure, unspecified congestive heart failure type (2) A-fib: Qualified Code: I48.2 - Chronic atrial fibrillation Clay Wayne MD Jan 19, 2017 13:46
[2017-01-19] MEDS: WARFARIN SOD 5 MG TAB PO SCH (16:51)
--- NOTE | 2017-01-19 17:43 | HHI.PR ---
Subjective Remarks No new complaints. Objective Vitals Vital Signs Date Time Temp Pulse Resp B/P Pulse Ox O2 Delivery O2 Flow Rate FiO2 01/19/17 12:04 98.4 81 20 159/80 93 01/19/17 12:00 95 Nasal Cannula 3.00 01/19/17 11:00 83 01/19/17 08:05 98.8 83 20 157/70 94 01/19/17 08:00 96 Nasal Cannula 3.00 01/19/17 08:00 92 Nasal Cannula 2.00 01/19/17 04:32 98.1 81 22 169/79 97 01/19/17 04:00 Nasal Cannula 3.00 01/19/17 00:00 Nasal Cannula 3.00 01/18/17 23:40 97.4 72 26 149/74 95 01/18/17 20:18 83 01/18/17 20:05 98.3 84 30 155/70 95 01/18/17 20:00 Nasal Cannula 3.00 01/18/17 17:51 96 Nasal Cannula 2.00 01/18/17 01/18/17 01/19/17 15:00 23:00 07:00 Intake Total 480 ml 480 ml 100 ml Output Total 1900 ml 850 ml 950 ml Balance -1420 ml -370 ml -850 ml Intake Oral 480 ml 480 ml 0 ml Albumin 100 ml Output Urine Total 1900 ml 850 ml 950 ml # Bowel Movements 0 0 0 Result Diagram: 01/19/17 0755 01/19/17 0755 Imaging Last Impressions Renal Ultrasound 01/16/17 0000 Signed Impressions: Service Date/Time: Monday, January 16, 2017 17:17 - CONCLUSION: No evidence of hydronephrosis. Bilateral renal cortical thinning. Bilateral renal cysts. Marvin Del Castillo MD Lower Extremity Ultrasound 01/16/17 0000 Signed Impressions: Service Date/Time: Monday, January 16, 2017 10:38 - CONCLUSION: Negative for deep venous thrombosis. Jermaine Nye MD FACR Chest X-Ray 01/13/17 0028 Signed Impressions: Service Date/Time: December 00:47 - CONCLUSION: No acute cardiopulmonary abnormality is identified. Jai Kelley MD Objective Remarks General: NAD, AAOx3 Chest: CTA Cardiac: Regular Abd: +BS, soft ND/NT Ext: Bilateral LE edema, L>R A/P Problem List: (1) Congestive heart failure Status: Acute Plan: - comgmt with Nephrology - Pt has been having issues with LE for at least the last 6 months, this has been worsening with increased pain and redness over the last 3 weeks. - Pt had been on diuretics intermittently but has not been taking them due to increased urination - Pt was given Lasix 40mg IV in the ED - [facility] cath for accurate I&Os - 2D echo, pt with hx of diastolic dysfunction - Pt was resumed on Metoprolol, Cardizem, Propafenone at admission. Losartan was held due to BP. - Pt is quite debilitated and will likely need SNF placement at the end of this hospitalization. - Pt was diuresed and was on Lasix but developed poor po intake and acute/CKD 3. Etiology could be multifactorial from her CHF and volume imbalance. - Pt was given Bumex and Albumin with improvement in the renal function - - albumin stopped (01/19) - likely change bumex to PO 01/20 - Pt appears to have some LLE cellulitis - LE US was negative for DVT. - Pt had been initially started on Vancomycin IV but this was switched to Rocephin on 01/15. (2) Acute worsening of stage 3 chronic kidney disease Status: Acute Plan: - See above (3) Coagulopathy Status: Acute Plan: - Coumadin was held at admission due to elevated INR of 5.2 - This worsened to INR 9 and pt was given Vitamin K SQ and PO - INR improved to 1.1 today - Coumadin resumed (4) Declining functional status Status: Chronic Plan: - See above. - Consult CM (5) A-fib Status: Chronic Plan: - See above. - Cont. BB, CCB, Propafenone - Telemetry (6) HTN (hypertension) Status: Chronic Plan: - See above. (7) Hyperparathyroidism Status: Resolved Plan: - Pt had parathyroid surgery in [place] in 2014 - Cont. Calcium supplementation - Pt follows with Dr. Ryder (8) CAD (coronary artery disease) Status: Chronic Assessment and Plan Patient examined. Assessment and plan formulated with Rola Pringle PA-C. I agree with the above. Problem Qualifiers (1) Congestive heart failure: Qualified Code: I50.9 - Acute on chronic congestive heart failure, unspecified congestive heart failure type (2) A-fib: Qualified Code: I48.2 - Chronic atrial fibrillation (3) HTN (hypertension): Qualified Code: I15.0 - Renovascular hypertension Nate Perez DO Jan 19, 2017 17:43
[2017-01-19] MEDS: ATORVASTATIN 80 MG TAB PO SCH (20:36)
[2017-01-20] VITALS (7 sets, daily range): BP systolic 126–198; BP diastolic 69–91; PULSE 75–94; RESP 18–20; TEMP 97.6–98.6; O2SAT 92–96
[2017-01-20] MEDS: PROPAFENONE HCL 150 MG TAB PO SCH ×3 (05:26→21:55)
[2017-01-20] MEDS: DILTIAZEM-CD 300 MG CAP ER PO SCH (08:21)
[2017-01-20] MEDS: METOPROLOL TARTRATE 100 MG TAB PO SCH ×2 (08:22→21:55)
[2017-01-20] MEDS: BUMETANIDE INJ 1 MG/4 ML VIAL IV PUSH SCH (08:22)
[2017-01-20] MEDS: SODIUM CHLORIDE 0.9% FLUSH 10 ML FLUSH IV FLUSH SCH ×2 (08:22→21:57)
[2017-01-20] MEDS: CALCITRIOL 0.25 MCG CAP PO SCH ×2 (08:22→14:54)
[2017-01-20 10:08] LABS: INTERNATIONAL NORMALIZED RATIO 1.4 RATIO; PROTHROMBIN TIME - PATIENT 15.4 SEC (9.8-11.6)
[2017-01-20 10:38] LABS: BICARBONATE 32.5 MEQ/L (21.0-32.0); POTASSIUM 3.6 MEQ/L (3.5-5.1)
[2017-01-20] MEDS: ACETAMINOPHEN 325 MG TAB PO PRN ×3 (11:02→23:14)
--- NOTE | 2017-01-20 14:30 | HHI.NPPN ---
Subjective History of Present Illness 81 year old with UTI, DM, CKD/VIKKI/CHF Review of Systems General Constitutional: Fatigue Cardiovascular Cardiac: Edema Objective Data Data 01/19/17 01/20/17 19:00 07:00 Intake Total 360 ml 240 ml Output Total 1800 ml 300 ml Balance -1440 ml -60 ml Intake Oral 360 ml 240 ml Output Urine Total 1800 ml 300 ml # Bowel Movements 0 0 Vital Signs Date Time Temp Pulse Resp B/P Pulse Ox O2 Delivery O2 Flow Rate FiO2 01/20/17 12:25 96 Nasal Cannula 3.00 01/20/17 12:00 98.2 87 18 198/77 94 01/20/17 08:00 98.3 79 18 185/74 96 01/20/17 04:00 Nasal Cannula 3.00 01/20/17 04:00 97.8 94 20 167/77 95 01/20/17 00:00 Nasal Cannula 3.00 01/20/17 00:00 97.6 75 20 148/69 92 01/19/17 21:12 96 Nasal Cannula 3.00 01/19/17 20:15 74 01/19/17 20:00 98.5 91 20 162/77 96 01/19/17 20:00 Nasal Cannula 3.00 01/19/17 16:04 98.4 81 20 159/80 93 -: 01/19/17 0755 01/20/17 0924 Physical Exam General Appearance: Well Developed, Well Nourished Neck Neck Exam: Neck Supple Pulmonary Resp Exam: Decreased Bases Cardiology CV Exam: Irregular, Arrhythmia Gastrointestinal/Abdomen GI Exam: Soft, Non-Tender, Bowel Sounds Present Extremeties Extremities Exam: Moderate Edema, Pitting Edema Assessment/Plan Problem List: (1) Acute worsening of stage 3 chronic kidney disease Plan: she responded well to Bumex diuresis UOP good UTI is treated appears to be pre renal and underlying CKD contributing factors US reviewed bilateral renal cyst and thinning of cortex Bumex and may switch to PO today she can be followed as out patient ok to dc from Nephrology point of view (2) Congestive heart failure Plan: Patient on Bumex (3) Leg edema Plan: Chronic edema with left leg cellulitis (4) A-fib Plan: Continue to monitor (5) CAD (coronary artery disease) Plan: Has previous stent (6) Urinary tract infection Plan: Proteus she is treated with ceftriaxone Problem Qualifiers (1) Congestive heart failure: Qualified Code: I50.9 - Acute on chronic congestive heart failure, unspecified congestive heart failure type (2) A-fib: Qualified Code: I48.2 - Chronic atrial fibrillation Clay Wayne MD Jan 20, 2017 14:30
[2017-01-20] MEDS: WARFARIN SOD 5 MG TAB PO SCH (14:55)
[2017-01-20] MEDS: cefTRIAXone INJ 1,000 MG in SODIUM CHLORIDE 0.9% INJ 100 ML IV SCH (14:55)
--- NOTE | 2017-01-20 15:59 | HHI.PR ---
Subjective Remarks Pt c/o worsening SOB. Objective Vitals Vital Signs Date Time Temp Pulse Resp B/P Pulse Ox O2 Delivery O2 Flow Rate FiO2 01/20/17 12:25 96 Nasal Cannula 3.00 01/20/17 12:00 98.2 87 18 198/77 94 01/20/17 08:00 98.3 79 18 185/74 96 01/20/17 04:00 Nasal Cannula 3.00 01/20/17 04:00 97.8 94 20 167/77 95 01/20/17 00:00 Nasal Cannula 3.00 01/20/17 00:00 97.6 75 20 148/69 92 01/19/17 21:12 96 Nasal Cannula 3.00 01/19/17 20:15 74 01/19/17 20:00 98.5 91 20 162/77 96 01/19/17 20:00 Nasal Cannula 3.00 01/19/17 16:04 98.4 81 20 159/80 93 01/19/17 01/19/17 01/20/17 14:59 22:59 06:59 Intake Total 360 ml 240 ml Output Total 1800 ml 300 ml Balance -1440 ml -60 ml Intake Oral 360 ml 240 ml Output Urine Total 1800 ml 300 ml # Bowel Movements 0 0 Result Diagram: 01/19/17 0755 01/20/17 0924 Imaging Last Impressions Renal Ultrasound 01/16/17 0000 Signed Impressions: Service Date/Time: Monday, January 16, 2017 17:17 - CONCLUSION: No evidence of hydronephrosis. Bilateral renal cortical thinning. Bilateral renal cysts. Marvin Del Castillo MD Lower Extremity Ultrasound 01/16/17 0000 Signed Impressions: Service Date/Time: Monday, January 16, 2017 10:38 - CONCLUSION: Negative for deep venous thrombosis. Jermaine Nye MD FACR Chest X-Ray 01/13/17 0028 Signed Impressions: Service Date/Time: December 00:47 - CONCLUSION: No acute cardiopulmonary abnormality is identified. Jai Kelley MD Objective Remarks General: NAD, AAOx3 Chest: decreased air movement at pt's lung bases Cardiac: Regular Abd: +BS, soft ND/NT Ext: Bilateral LE edema, L>R A/P Problem List: (1) Congestive heart failure Status: Acute Plan: - comgmt with Nephrology - Pt has been having issues with LE for at least the last 6 months, this has been worsening with increased pain and redness over the last 3 weeks. - Pt had been on diuretics intermittently but has not been taking them due to increased urination - Pt was given Lasix 40mg IV in the ED - [facility] cath for accurate I&Os - 2D echo (01/13/17) - diastolic dysfunction - severe TR - moderate Pulm HTN - EF 60-65% - Pt was resumed on Metoprolol, Cardizem, Propafenone at admission. Losartan was held due to BP. - Pt is quite debilitated and will likely need SNF placement at the end of this hospitalization. - Pt was diuresed and was on Lasix but developed poor po intake and acute/CKD 3. Etiology could be multifactorial from her CHF and volume imbalance. - LLE cellulitis - LE US was negative for DVT. - Pt had been initially started on Vancomycin IV but this was switched to Rocephin on (01/15 - present). - Pt was given Bumex and Albumin with improvement in the renal function - albumin stopped (01/19) - Pt's renal fxn much improved - Pt now c/o worsening SOB with increased oxygen requirements - obtain repeat CXR (PA & lat) - change bumex back to IV - per pt/family request, obtain hospice consult (2) HTN (hypertension) Status: Chronic Plan: - resume losartan 100mg daily (3) Acute worsening of stage 3 chronic kidney disease Status: Acute Plan: - See above (4) Coagulopathy Status: Acute Plan: - Coumadin was held at admission due to elevated INR of 5.2 - This worsened to INR 9 and pt was given Vitamin K SQ and PO - Coumadin resumed - repeat INR in AM (5) Declining functional status Status: Chronic Plan: - See above. - Consult CM (6) A-fib Status: Chronic Plan: - See above. - Cont. BB, CCB, Propafenone - Telemetry (7) Hyperparathyroidism Status: Resolved Plan: - Pt had parathyroid surgery in [place] in 2014 - Cont. Calcium supplementation - Pt follows with Dr. Ryder (8) CAD (coronary artery disease) Status: Chronic Problem Qualifiers (1) Congestive heart failure: Qualified Code: I50.9 - Acute on chronic congestive heart failure, unspecified congestive heart failure type (2) HTN (hypertension): Qualified Code: I15.0 - Renovascular hypertension (3) A-fib: Qualified Code: I48.2 - Chronic atrial fibrillation Nate Perez DO Jan 20, 2017 15:59
[2017-01-20] MEDS ORDERED: BUMETANIDE 1 MG TAB PO SCH (18:00)
--- NOTE | 2017-01-20 21:31 | RADRPT ---
EXAM DATE/TIME: 01/20/2017 20:07 [facility] COMPARISON: No previous studies available for comparison. INDICATIONS : Congestive heart failure. Shortness of breath. MEDICAL HISTORY : Congestive heart failure. Hypertension Cardiovascular disease. Hypercholesterolemia, AFIB, GERD SURGICAL HISTORY : Coronary artery stent. ENCOUNTER: Subsequent ACUITY: 1 week PAIN SCORE: 0/10 LOCATION: Bilateral chest FINDINGS: There is indistinctness and engorgement of the central bronchopulmonary markings with associated shaw bronchial thickening. There also patchy areas of infiltrate in the left lower lung. There is blunti ng of both costophrenic angle suggesting pleural effusion. The heart is normal in size. CONCLUSION: Findings suggests alveolar pulmonary edema and pleural effusions. Marvin Del Castillo MD on January 20, 2017 at 21:28 Board Certified Radiologist. This report was verified electronically.
[2017-01-20] MEDS: ATORVASTATIN 80 MG TAB PO SCH (21:55)
[2017-01-21] VITALS: BP 153/70; PULSE 75; RESP 18; TEMP 98; O2SAT 94
[2017-01-21 04:00] VITALS: PULSE 71; RESP 18; TEMP 98.4; O2SAT 91
[2017-01-21 04:11] VITALS: BP 142/68
[2017-01-21] MEDS: PROPAFENONE HCL 150 MG TAB PO SCH ×2 (06:45→13:14)
[2017-01-21 08:00] VITALS: BP 155/65; PULSE 74; RESP 20; TEMP 97.9; O2SAT 94
[2017-01-21] MEDS: CALCITRIOL 0.25 MCG CAP PO SCH ×3 (08:50→13:14)
[2017-01-21] MEDS: METOPROLOL TARTRATE 100 MG TAB PO SCH (08:51)
[2017-01-21] MEDS: DILTIAZEM-CD 300 MG CAP ER PO SCH (08:51)
[2017-01-21] MEDS: POTASSIUM CHLORIDE 20 MEQ CONTROLLED RELEASE TAB PO SCH ×2 (08:51→09:00)
[2017-01-21] MEDS: LOSARTAN 50 MG TAB PO SCH ×2 (08:51→09:00)
[2017-01-21] MEDS: BUMETANIDE INJ 1 MG/4 ML VIAL IV PUSH SCH ×2 (08:52→09:00)
[2017-01-21] MEDS: SODIUM CHLORIDE 0.9% FLUSH 10 ML FLUSH IV FLUSH SCH (09:00)
[2017-01-21 09:50] VITALS: O2SAT 94
--- NOTE | 2017-01-21 11:21 | HHI.NPPN ---
Subjective History of Present Illness 81 year old with UTI, DM, CKD/VIKKI/CHF Review of Systems General Constitutional: Fatigue Cardiovascular Cardiac: Edema Objective Data Data 01/20/17 01/21/17 18:59 06:59 Intake Total 720 ml 340 ml Output Total 1000 ml 1350 ml Balance -280 ml -1010 ml Intake Oral 720 ml 340 ml Output Urine Total 1000 ml 1350 ml # Bowel Movements 0 Vital Signs Date Time Temp Pulse Resp B/P Pulse Ox O2 Delivery O2 Flow Rate FiO2 01/21/17 09:50 94 Nasal Cannula 3.00 01/21/17 08:00 97.9 74 20 155/65 94 01/21/17 04:11 142/68 01/21/17 04:00 98.4 71 18 91 01/21/17 00:00 98.0 75 18 153/70 94 01/20/17 22:08 Nasal Cannula 3.00 01/20/17 20:51 Nasal Cannula 3.00 01/20/17 20:00 98.4 75 18 161/77 95 01/20/17 20:00 Nasal Cannula 3.00 01/20/17 16:00 98.6 79 18 152/69 96 01/20/17 12:25 96 Nasal Cannula 3.00 01/20/17 12:00 98.2 87 18 198/77 94 -: 01/19/17 0755 01/20/17 0924 Physical Exam General Appearance: Well Developed, Well Nourished Neck Neck Exam: Neck Supple Pulmonary Resp Exam: Crackles, Decreased Bases Cardiology CV Exam: Irregular, Arrhythmia Gastrointestinal/Abdomen GI Exam: Soft, Non-Tender, Bowel Sounds Present Extremeties Extremities Exam: Moderate Edema, Pitting Edema Assessment/Plan Problem List: (1) Acute worsening of stage 3 chronic kidney disease Plan: apparently went into Flash Pulmonary edema and Bumex switched to IV 2 mg q 12 UOP increased Hospice considered as Valvular heart disease UTI is treated appears to be pre renal and underlying CKD contributing factors US reviewed bilateral renal cyst and thinning of cortex Nephrology to sign off (2) Congestive heart failure Plan: Patient on Bumex (3) Leg edema Plan: Chronic edema with left leg cellulitis (4) A-fib Plan: Continue to monitor (5) CAD (coronary artery disease) Plan: Has previous stent (6) Urinary tract infection Plan: Proteus she is treated with ceftriaxone Problem Qualifiers (1) Congestive heart failure: Qualified Code: I50.9 - Acute on chronic congestive heart failure, unspecified congestive heart failure type (2) A-fib: Qualified Code: I48.2 - Chronic atrial fibrillation Clay Wayne MD Jan 21, 2017 11:21
[2017-01-21 12:00] VITALS: BP 167/72; PULSE 82; RESP 20; TEMP 98.6; O2SAT 95
[2017-01-21] MEDS: cefTRIAXone INJ 1,000 MG in SODIUM CHLORIDE 0.9% INJ 100 ML IV SCH (13:15)
--- NOTE | 2017-01-21 15:12 | HHI.DS ---
Discharge Summary Admission Date Jan 13, 2017 at 02:32 Discharge Date: Jan 21, 2017 Admitting Diagnosis congestive heart failure, bilateral lower extremity pitting edema (1) Congestive heart failure Diagnosis: Principal (2) Acute worsening of stage 3 chronic kidney disease Diagnosis: Principal (3) HTN (hypertension) Diagnosis: Secondary (4) Coagulopathy Diagnosis: Secondary (5) Declining functional status Diagnosis: Secondary (6) A-fib Diagnosis: Secondary (7) Hyperparathyroidism Diagnosis: Secondary (8) CAD (coronary artery disease) Diagnosis: Secondary Consultants Dr. Clay Wayne, Nephrology Brief History Mrs. Tenorio is a 81 y/o WF with atrial fibrillation, diastolic dysfunction, CKD, stage 3, Hx of anemia and Cold agglutinin disease, COPD, and essential tremor who was brought to the ED at [facility] on 01/13/17 via EMS for increasing lower extremity edema and pain in the LE. The patient is a rather poor historian. I spoke with the pts , Natan who states she's had issues with LE edema for the last 6 months or so. She was started on Lasix 20mg daily as an outpt but has not been taking it very often due to increased urination. Pts reports that the pt has been in decline for the last several months and becoming more difficult to take care of her at home. She is not very mobile. Her has been modifying the home to accommodate her limitations but she has been falling frequently. He states that the LE edema has been causing her to have more limitation as far as movement and over the last few weeks she has had increasing pain in the LE. More recently she has been having issues with palpitations and Propafenone 150mg TID was added to her regimen about 1 month ago by her End Polisher, Dr. Guzman. She seems to have more pain related to the LLE and there is noted erythema of the LLE. No reported fevers at home. Pt states that she always has chills. Her states that the patient has had increasing memory loss issues in addition to her physical decline. No reported chest pain. She states that she feels SOB but is unable to give any specific details related to this. No reported N/V, Diarrhea, Constipation, melena, BRBPR. CBC/BMP: 01/19/17 0755 01/20/17 0924 Significant Findings Laboratory Tests Test 01/19/17 01/20/17 07:55 09:24 Red Blood Count 2.99 MIL/MM3 (4.00-5.30) Hemoglobin 10.6 GM/DL (11.6-15.3) Hematocrit 29.9 % (35.0-46.0) Mean Corpuscular Hemoglobin 35.6 PG (27.0-34.0) Red Cell Distribution Width 17.6 % (11.6-17.2) Platelet Count 148 TH/MM3 (150-450) Neutrophils (%) (Auto) 80.2 % (16.0-70.0) Lymphocytes # (Auto) 0.6 TH/MM3 (1.0-4.8) Prothrombin Time 13.3 SEC 15.4 SEC (9.8-11.6) (9.8-11.6) Blood Urea Nitrogen 57 MG/DL (7-18) 48 MG/DL (7-18) Creatinine 1.36 MG/DL 1.24 MG/DL (0.50-1.00) (0.50-1.00) Estimat Glomerular Filtration 38 ML/MIN (>89) 42 ML/MIN (>89) Rate Carbon Dioxide Level 32.5 MEQ/L (21.0-32.0) Random Glucose 170 MG/DL (74-106) PE at Discharge General: NAD, AAOx3 Chest: decreased air movement at pt's lung bases Cardiac: Regular Abd: +BS, soft ND/NT Ext: Bilateral LE edema, L>R Hospital Course (1) Congestive heart failure Status: Acute Plan: - comgmt with Nephrology - Pt has been having issues with LE for at least the last 6 months, this has been worsening with increased pain and redness over the last 3 weeks. - Pt had been on diuretics intermittently but has not been taking them due to increased urination - Pt was given Lasix 40mg IV in the ED - [facility] cath for accurate I&Os - 2D echo (01/13/17) - diastolic dysfunction - severe TR - moderate Pulm HTN - EF 60-65% - Pt was resumed on Metoprolol, Cardizem, Propafenone at admission. Losartan was held due to BP. - Pt is quite debilitated and will likely need SNF placement at the end of this hospitalization. - Pt was diuresed and was on Lasix but developed poor po intake and acute/CKD 3. Etiology could be multifactorial from her CHF and volume imbalance. - LLE cellulitis - LE US was negative for DVT. - Pt had been initially started on Vancomycin IV but this was switched to Rocephin on 01/15 - Pt was given Bumex and Albumin with improvement in the renal function - albumin stopped (01/19) - Pt's renal fxn much improved - Pt then developed worsening SOB with increased oxygen requirements - IV bumex resumed with clinical improvement - repeat CXR (PA & lat) 01/20 --> CHF - changed bumex back to IV - met with pt//son/[id number]-ev-sar at length 01/20 - Pt/family requested hospice - Pt transferred to hospice care center 01/21/17 (2) HTN (hypertension) Status: Chronic Plan: - resume losartan 100mg daily (3) Acute worsening of stage 3 chronic kidney disease Status: Acute Plan: - See above (4) Coagulopathy Status: Acute Plan: - Coumadin was held at admission due to elevated INR of 5.2 - This worsened to INR 9 and pt was given Vitamin K SQ and PO - Coumadin resumed (5) Declining functional status Status: Chronic Plan: - See above. - Consult CM (6) A-fib Status: Chronic Plan: - See above. - Cont. BB, CCB, Propafenone - Telemetry (7) Hyperparathyroidism Status: Resolved Plan: - Pt had parathyroid surgery in [place] in 2014 - Cont. Calcium supplementation - Pt follows with Dr. Ryder (8) CAD (coronary artery disease) Status: Chronic Pt Condition on Discharge: Deteriorating Discharge Disposition: Hospice/Med Facility Discharge Instructions DIET: Follow Instructions for: As Tolerated, No Restrictions Activities you can perform: Regular-No Restrictions Continued Medications: Losartan (Losartan) 100 Mg Tab 100 MG PO DAILY Blood Pressure Management #30 Ref 0 TAB Terazosin (Terazosin) 2 Mg Cap 2 MG PO HS #30 Ref 0 CAP Nate Perez DO Jan 21, 2017 15:12
== END 2017-01-21 15:06 | disposition hospice, inpatient (51) | DRG 291 ==
LOC: NEPE 00:18 → NEDA 02:32 → NEPGCP 04:42 → N04A 23:11
PROVIDERS: ADMIT Hospitalist; ATTEND Hospitalist
DX: I13.0 Hypertensive heart and chronic kidney disease with heart failure and stage 1 through stage 4 chronic kidney disease, or unspecified chronic kidney disease (principal); I50.33 Acute on chronic diastolic (congestive) heart failure; N17.9 Acute kidney failure, unspecified; L03.116 Cellulitis of left lower limb; I27.2 Other secondary pulmonary hypertension; J44.9 Chronic obstructive pulmonary disease, unspecified; I08.1 Rheumatic disorders of both mitral and tricuspid valves; I48.2 Chronic atrial fibrillation; G25.0 Essential tremor; E78.5 Hyperlipidemia, unspecified; I25.10 Atherosclerotic heart disease of native coronary artery without angina pectoris; K21.9 Gastro-esophageal reflux disease without esophagitis; I73.9 Peripheral vascular disease, unspecified; Z51.5 Encounter for palliative care; E66.9 Obesity, unspecified; N18.3 Chronic kidney disease, stage 3 (moderate); Z79.82 Long term (current) use of aspirin; Z79.01 Long term (current) use of anticoagulants; Z95.5 Presence of coronary angioplasty implant and graft
CPT/HCPCS: 71010; 71020; 76775; 80048; 80053; 80202; 81001; 82550; 83605; 83735; 83880; 84300; 84484; 85007; 85025; 85027; 85610; 85730; 87077; 87086; 87186; 87205; 87641; 93005; 93306; 93971; 96374; J0696; J1940; J2405; J3370; J3430; J7030; J7050; P9047